=== PATIENT | female | born 1975 | race Caucasian/White ===

== ENCOUNTER 2021-08-28 12:20 | Emergency (ER) | payer MEDICAID ==
[~2021-08-28] VITALS: Ht 170.2 cm; Wt 112.4 kg
[~2021-08-28 12:20] MED LIST: BECL7.3A INH; BUPR300T53 PO; CLA10T PO; FLUT16SP2 BOTHNARES; HYDR-3973 PO; LORA-269 PO; LURA40TA3 PO; TOP25T PO; VENL150C2 PO; VENL75CA55 PO
[2021-08-28 12:30] VITALS: BP 119/80
[2021-08-28] MEDS ORDERED: azithromycin 250mg tablet PO ONE (12:35)
[2021-08-28] MEDS ORDERED: CefTRIAXone 1000mg IM Kit (w/lidocaine diluent) IM ONE (12:35)
[2021-08-28 13:32] LABS: URINE HCG NEGATIVE (NEG)
[2021-08-28 13:40] LABS: CLARITY,URINE CLOUDY (Clear); COLOR,URINE YELLOW (Yellow); GLUCOSE, URINE NEGATIVE (Neg); KETONES,URINE NEGATIVE (Neg); OCCULT BLOOD,URINE MODERATE (Neg); PROTEIN,URINE NEGATIVE (Neg); UA COLLECTION TYPE CLN CATCH MIDSTREAM
[2021-08-28 13:41] LABS: LEUKOCYTE ESTERASE ,URINE LARGE (Neg); NITRITES, URINE NEGATIVE (Neg); UROBILINOGEN,URINE 0.2 E.U/dL (0.2-1.0)
[2021-08-28 13:58] LABS: WBC,URINE 50-100 /HPF (0-4)
[2021-08-28 14:00] LABS: BACTERIA,URINE 3+ /HPF (Neg)
[2021-08-28 14:01] LABS: MUCUS STRANDS FEW /LPF (Neg); SQUAMOUS EPITHELIAL CELL,UR MODERATE /LPF (FEW); TRANSITIONAL EPI CELLS,URINE FEW /HPF; TRICHOMONAS,URINE FEW /HPF (NEGATIVE); WBC CLUMPS,URINE MODERATE /HPF (NEGATIVE)
[2021-08-28] MEDS ORDERED: FLUC150T66 PO (14:14)
== END 2021-08-28 14:42 | disposition home or self-care (01) ==
LOC: ER 12:21
DX: N89.8 Other specified noninflammatory disorders of vagina (principal); A64 Unspecified sexually transmitted disease; R10.2 Pelvic and perineal pain; L29.9 Pruritus, unspecified; R30.0 Dysuria; I10 Essential (primary) hypertension; F41.9 Anxiety disorder, unspecified; F31.9 Bipolar disorder, unspecified; F12.90 Cannabis use, unspecified, uncomplicated; Z98.890 Other specified postprocedural states; Z88.5 Allergy status to narcotic agent; Z88.8 Allergy status to other drugs, medicaments and biological substances; Z79.899 Other long term (current) drug therapy
CPT/HCPCS: 36415; 81001; 81025; 87088; 87491; 87591; 96372; 99283; J0696

== ENCOUNTER 2021-08-31 17:24 | Emergency (ER) | payer MEDICAID ==
[~2021-08-31] VITALS: Ht 170.2 cm; Wt 115.0 kg
[~2021-08-31 17:24] MED LIST changes: +FLUC150T66 PO
[2021-08-31] MEDS ORDERED: MICO45CR46 VG (19:40)
[2021-08-31 20:28] VITALS: BP 114/68
== END 2021-08-31 20:30 | disposition home or self-care (01) ==
LOC: ER 17:25
DX: K43.9 Ventral hernia without obstruction or gangrene (principal); B37.3 Candidiasis of vulva and vagina; I10 Essential (primary) hypertension; F41.9 Anxiety disorder, unspecified; F31.9 Bipolar disorder, unspecified; F12.90 Cannabis use, unspecified, uncomplicated; Z98.890 Other specified postprocedural states; Z88.5 Allergy status to narcotic agent; Z79.2 Long term (current) use of antibiotics; Z79.899 Other long term (current) drug therapy
CPT/HCPCS: 99283

== ENCOUNTER 2021-10-18 17:06 | Emergency (ER) | payer MEDICAID ==
[~2021-10-18] VITALS: Ht 167.6 cm; Wt 110.9 kg
[~2021-10-18 17:06] MED LIST changes: -FLUC150T66 PO
--- NOTE | 2021-10-18 17:50 | NUR ---
GRACE CALLED FOR REPORT NUMBER. POLICE REPORT WAS NOT DONE TODAY. REPORT FILED BY THIS NURSE. INCIDENT # IS: [id number]
--- NOTE | 2021-10-18 19:24 | NUR ---
pt roomed in bed 1. assumed care of pt. pt reports that there is already a case filed with the police department.
[2021-10-18] MEDS ORDERED: ketorolac tromethamine 15mg/ml inj. IM ONE (21:35)
[2021-10-18] MEDS ORDERED: CefTRIAXone 1000mg IM Kit (w/lidocaine diluent) IM ONE (21:35)
[2021-10-18] MEDS ORDERED: metroNIDAZOLE 500mg tablet PO ONE (22:15)
[2021-10-18] MEDS ORDERED: DOXYCYCLINE 100MG CAPSULE PO ONE (22:15)
[2021-10-18] MEDS ORDERED: ketorolac trometh. 30mg/ml inj. IM ONE (22:25)
[2021-10-18] MEDS ORDERED: METR250T37 PO (22:30)
[2021-10-18] MEDS ORDERED: DOXY150T5 PO (22:30)
[2021-10-18] MEDS ORDERED: FLUC150T PO (22:53)
[2021-10-18 22:59] VITALS: BP 159/97
[2021-10-18 23:16] LABS: CLARITY,URINE CLOUDY (Clear); GLUCOSE, URINE NEGATIVE (Neg); KETONES,URINE NEGATIVE (Neg); LEUKOCYTE ESTERASE ,URINE LARGE (Neg); NITRITES, URINE NEGATIVE (Neg); OCCULT BLOOD,URINE TRACE-INTACT (Neg); PH,URINE 6.5 (4.8-8.0); PROTEIN,URINE NEGATIVE (Neg); UROBILINOGEN,URINE 0.2 E.U/dL (0.2-1.0)
[2021-10-18 23:21] LABS: COLOR,URINE STRAW (Yellow); UA COLLECTION TYPE CLN CATCH MIDSTREAM
[2021-10-18 23:24] LABS: SQUAMOUS EPITHELIAL CELL,UR FEW /LPF (FEW); WBC CLUMPS,URINE FEW /HPF (NEGATIVE)
[2021-10-18 23:27] LABS: BACTERIA,URINE 1+ /HPF (Neg); RBC,URINE 0-2 /HPF (0-2); WBC,URINE 30-50 /HPF (0-4)
== END 2021-10-18 23:02 | disposition home or self-care (01) ==
LOC: EEVIPCON 17:07 → ER 17:07
DX: S70.02XA Contusion of left hip, initial encounter (principal); A64 Unspecified sexually transmitted disease; R10.2 Pelvic and perineal pain; M25.552 Pain in left hip; I10 Essential (primary) hypertension; F41.9 Anxiety disorder, unspecified; F31.9 Bipolar disorder, unspecified; F12.90 Cannabis use, unspecified, uncomplicated; Z98.890 Other specified postprocedural states; Z88.5 Allergy status to narcotic agent; Z88.8 Allergy status to other drugs, medicaments and biological substances; Z79.2 Long term (current) use of antibiotics; Z79.899 Other long term (current) drug therapy; Y08.89XA Assault by other specified means, initial encounter; Y93.89 Activity, other specified; Y92.89 Other specified places as the place of occurrence of the external cause; Y99.8 Other external cause status
CPT/HCPCS: 36415; 73502; 81001; 87088; 87491; 87591; 96372; 99284; J0696

== ENCOUNTER 2021-10-29 11:51 | Emergency (ER) | payer MEDICAID ==
[~2021-10-29] VITALS: Ht 167.6 cm; Wt 109.1 kg
[~2021-10-29 11:51] MED LIST changes: +DOXY150T5 PO
[2021-10-29 14:05] LABS: BASOPHILS % (AUTO) 0.4 % (0-1); EOSINOPHILS # (AUTO) 0.2 X10'3 (0-0.9); EOSINOPHILS % (AUTO) 1.5 % (0-6); HEMATOCRIT 34.7 % (35.0-45.0); HEMOGLOBIN 11.5 g/dl (12.0-16.0); LYMPHOCYTES # (AUTO) 2.1 X10'3 (1.1-4.8); LYMPHOCYTES % (AUTO) 19.7 % (21-51); MEAN CORPUSCULAR HEMOGLOBIN 27.5 PG (27.0-31.0); MEAN CORPUSCULAR HGB CONC 33.3 g/dL (33.0-36.5); MEAN CORPUSCULAR VOLUME 82.8 FL (78-98); MEAN PLATELET VOLUME 8.6 FL (7.4-10.4); MONOCYTES # (AUTO) 0.8 X10'3 (0-0.9); MONOCYTES % (AUTO) 7.3 % (2-12); NEUTROPHILS # (AUTO) 7.6 X10'3 (1.8-7.7); NEUTROPHILS % (AUTO) 71.1 % (42-75); PLATELET COUNT 444 X10'3 (140-440); RED BLOOD COUNT 4.19 X10'6 (4.20-5.60); WHITE BLOOD COUNT 10.7 X10'3 (4.5-11.0)
[2021-10-29 14:32] LABS: ANISOCYTOSIS 2+; PLATELET ESTIMATE INCREASED
[2021-10-29 14:36] LABS: ALANINE AMINOTRANSFERASE 20 U/L (12-78); ALBUMIN 3.7 G/DL (3.4-5.0); ALBUMIN/GLOBULIN RATIO 0.8 (1.1-1.5); ALKALINE PHOSPHATASE 96 IU/L (46-116); ANION GAP 10 (8-16); ASPARTATE AMINO TRANSFERASE 15 U/L (10-37); BILIRUBIN,TOTAL 0.4 MG/DL (0.1-1.0); BLOOD UREA NITROGEN 17 MG/DL (7-18); BUN/CREATININE RATIO 20.5 (6.6-38.0); CALCIUM 9.7 MG/DL (8.5-10.1); CHLORIDE 105 MMOL/L (99-107); CREATININE 0.83 MG/DL (0.40-0.90); GLUCOSE 104 MG/DL (70-104); POTASSIUM 3.5 MMOL/L (3.5-5.1); SODIUM 140 MMOL/L (135-145); TOTAL PROTEIN 8.1 G/DL (6.4-8.2); eGFR 73 ML/MIN
[2021-10-29 17:07] LABS: CLARITY,URINE SLIGHTLY CLOUDY (Clear); COLOR,URINE YELLOW (Yellow); GLUCOSE, URINE NEGATIVE (Neg); KETONES,URINE TRACE mg/dl (Neg); LEUKOCYTE ESTERASE ,URINE NEGATIVE (Neg); NITRITES, URINE NEGATIVE (Neg); OCCULT BLOOD,URINE NEGATIVE (Neg); PH,URINE 5.5 (4.8-8.0); PROTEIN,URINE NEGATIVE (Neg); UROBILINOGEN,URINE 0.2 E.U/dL (0.2-1.0)
[2021-10-29 17:08] LABS: UA COLLECTION TYPE CLN CATCH MIDSTREAM
[2021-10-29 17:17] LABS: SQUAMOUS EPITHELIAL CELL,UR MANY /LPF (FEW)
[2021-10-29 17:18] LABS: BACTERIA,URINE NONE SEEN /HPF (Neg); CAL OXALATE CRYSTALS 4+ /HPF (NEGATIVE); RBC,URINE 0-2 /HPF (0-2); WBC,URINE 0-4 /HPF (0-4)
[2021-10-29 18:36] VITALS: BP 183/99
== END 2021-10-29 18:39 | disposition home or self-care (01) ==
LOC: ER 11:51
DX: R10.30 Lower abdominal pain, unspecified (principal); R19.7 Diarrhea, unspecified; F31.9 Bipolar disorder, unspecified; I10 Essential (primary) hypertension; Z88.5 Allergy status to narcotic agent; Z88.8 Allergy status to other drugs, medicaments and biological substances
CPT/HCPCS: 36415; 80053; 81001; 85008; 85025; 99283

== ENCOUNTER 2021-11-01 10:11 | Emergency (ER) | payer MEDICAID ==
[~2021-11-01] VITALS: Ht 170.2 cm; Wt 105.0 kg
[~2021-11-01 10:11] MED LIST changes: -DOXY150T5 PO
[2021-11-01 11:07] LABS: BASOPHILS % (AUTO) 0.2 % (0-1); EOSINOPHILS % (AUTO) 0 % (0-6); HEMATOCRIT 32.6 % (35.0-45.0); HEMOGLOBIN 10.6 g/dl (12.0-16.0); LYMPHOCYTES # (AUTO) 1.4 X10'3 (1.1-4.8); LYMPHOCYTES % (AUTO) 9.8 % (21-51); MEAN CORPUSCULAR HEMOGLOBIN 27.3 PG (27.0-31.0); MEAN CORPUSCULAR HGB CONC 32.6 g/dL (33.0-36.5); MEAN CORPUSCULAR VOLUME 83.7 FL (78-98); MEAN PLATELET VOLUME 8.5 FL (7.4-10.4); MONOCYTES # (AUTO) 0.9 X10'3 (0-0.9); MONOCYTES % (AUTO) 6.5 % (2-12); NEUTROPHILS # (AUTO) 11.8 X10'3 (1.8-7.7); NEUTROPHILS % (AUTO) 83.5 % (42-75); PLATELET COUNT 364 X10'3 (140-440); RED BLOOD COUNT 3.89 X10'6 (4.20-5.60); RED CELL DISTRIBUTION WIDTH 18.9 % (11.5-14.5); WHITE BLOOD COUNT 14.2 X10'3 (4.5-11.0)
[2021-11-01 11:22] LABS: ANISOCYTOSIS 2+; PLATELET ESTIMATE NORMAL
[2021-11-01 11:23] LABS: ELLIPTOCYTES FEW; LARGE PLATELETS FEW; TEAR DROP CELLS FEW
[2021-11-01 11:27] LABS: ALANINE AMINOTRANSFERASE 22 U/L (12-78); ALBUMIN 3.2 G/DL (3.4-5.0); ALBUMIN/GLOBULIN RATIO 0.8 (1.1-1.5); ALKALINE PHOSPHATASE 86 IU/L (46-116); ANION GAP 13 (8-16); ASPARTATE AMINO TRANSFERASE 22 U/L (10-37); BILIRUBIN,TOTAL 0.4 MG/DL (0.1-1.0); BLOOD UREA NITROGEN 17 MG/DL (7-18); BUN/CREATININE RATIO 22.7 (6.6-38.0); CALCIUM 8.8 MG/DL (8.5-10.1); CHLORIDE 107 MMOL/L (99-107); CREATININE 0.75 MG/DL (0.40-0.90); GLUCOSE 86 MG/DL (70-104); SODIUM 143 MMOL/L (135-145); TOTAL CARBON DIOXIDE 23.2 MMOL/L (24-32); TOTAL PROTEIN 7.1 G/DL (6.4-8.2); eGFR 82 ML/MIN
[2021-11-01] MEDS ORDERED: HYDR-3964 PO (11:35)
[2021-11-01] MEDS ORDERED: ONDA4TAB6 PO ×2 (11:35)
[2021-11-01 11:48] LABS: CKMB RELATIVE INDEX 4.1 RATIO (0-2.5); CREATINE KINASE 200 U/L (26-192); ETHANOL < 0.010 GM/DL (0.0-0.010)
[2021-11-01 13:43] VITALS: BP 164/62
[2021-11-02] MEDS ORDERED: ESZO3TAB66 PO (18:56)
[2021-11-02] MEDS ORDERED: CLON1TAB12 PO (18:56)
[2021-11-02] MEDS ORDERED: PRAZ1CAP5 PO (18:57)
[2021-11-02] MEDS ORDERED: PROP80TA4 PO (18:57)
[2021-11-02] MEDS ORDERED: CITA-109 PO (18:58)
[2021-11-02] MEDS ORDERED: TOPI25TA15 PO (18:58)
[2021-11-02] MEDS ORDERED: QUET25TA PO (18:59)
[2021-11-02] MEDS ORDERED: DULO60CA65 PO (18:59)
[2021-11-02] MEDS ORDERED: LORA-269 PO (19:00)
== END 2021-11-01 13:53 | disposition home or self-care (01) ==
LOC: ER 10:12
DX: S80.12XA Contusion of left lower leg, initial encounter (principal); S80.11XA Contusion of right lower leg, initial encounter; T68.XXXA Hypothermia, initial encounter; I10 Essential (primary) hypertension; F41.9 Anxiety disorder, unspecified; F31.9 Bipolar disorder, unspecified; F12.90 Cannabis use, unspecified, uncomplicated; Z98.890 Other specified postprocedural states; Z88.5 Allergy status to narcotic agent; Z88.8 Allergy status to other drugs, medicaments and biological substances; Z79.899 Other long term (current) drug therapy; W19.XXXA Unspecified fall, initial encounter; Y93.89 Activity, other specified; Y92.89 Other specified places as the place of occurrence of the external cause; Y99.8 Other external cause status
CPT/HCPCS: 36415; 80053; 80320; 82550; 82553; 84443; 85008; 85025; 99283

== ENCOUNTER 2021-11-02 00:31 | Emergency (ER) | payer MEDICAID ==
[~2021-11-02 00:31] MED LIST changes: +ONDA4TAB6 PO
[2021-11-02] MEDS ORDERED: CLON1TAB12 PO (18:56)
[2021-11-02] MEDS ORDERED: ESZO3TAB66 PO (18:56)
[2021-11-02] MEDS ORDERED: PROP80TA4 PO (18:57)
[2021-11-02] MEDS ORDERED: PRAZ1CAP5 PO (18:57)
[2021-11-02] MEDS ORDERED: TOPI25TA15 PO (18:58)
[2021-11-02] MEDS ORDERED: CITA-109 PO (18:58)
[2021-11-02] MEDS ORDERED: DULO60CA65 PO (18:59)
[2021-11-02] MEDS ORDERED: QUET25TA PO (18:59)
[2021-11-02] MEDS ORDERED: LORA-269 PO (19:00)
== END 2021-11-02 04:27 | disposition left against medical advice (07) ==
LOC: ER 00:32
DX: R52 Pain, unspecified (principal); Z53.21 Procedure and treatment not carried out due to patient leaving prior to being seen by health care provider

== ENCOUNTER 2021-11-23 18:09 | Inpatient (IN) | payer MEDICAID ==
[~2021-11-23] VITALS: Ht 167.6 cm; Wt 107.0 kg
[~2021-11-23 18:09] MED LIST changes: -BECL7.3A INH; +BISA10SU11 RC; -BUPR300T53 PO; +CELE100C98 PO; +CHOL100046 PO; -CLA10T PO; +CLON0.5T4 PO; +CLON1TAB12 PO; +CLON1TAB96 PO; +DOCU100C40 PO; +DULO30CA52 PO; +DULO60CA65 PO; +FER325T PO; +FLUT16SP NS; -FLUT16SP2 BOTHNARES; -HYDR-3973 PO; +HYDROchlorothiazide tablet PO; +LISI10TA27 PO; -LORA-269 PO; +LORA10TA65 PO; -LURA40TA3 PO; +OLAN7.5T18 PO; +ONDA4TAB12 PO; -ONDA4TAB6 PO; +POLY15DR31 EACHEYE; +PROP60TA19 PO; +ROBDML PO; +TERB250T89 PO; -TOP25T PO; +TRAZ-251 PO; -VENL150C2 PO; -VENL75CA55 PO
[2021-11-23 20:40] VITALS: BP 114/66
[2021-11-23] MEDS ORDERED: temazepam 15mg capsule PO PRN (21:00)
--- NOTE | 2021-11-23 21:31 | NUR ---
Notified that patient arrived from [facility] unit and that patient needs admitting orders done. accepted patient for the hospitalist group per my conversation with nursing room service supervisor, Tavia earlier in the shift.
[2021-11-23] MEDS ORDERED: acetaminophen 325mg tablet PO PRN ×3 (22:00→22:10)
[2021-11-23] MEDS ORDERED: acetaminophen 650mg rectal suppository RC PRN (22:10)
[2021-11-23] MEDS ORDERED: HYDROcodone/acetaminophen 5mg/325mg tablet PO PRN (22:10)
[2021-11-23] MEDS ORDERED: diphenhydrAMINE 50 mg/ml inj IV PRN (22:10)
[2021-11-23] MEDS ORDERED: magnesium hydroxide 30ml (MOM) UD suspension PO PRN (22:10)
[2021-11-23] MEDS ORDERED: diphenhydrAMINE 25mg capsule PO PRN (22:10)
[2021-11-23] MEDS ORDERED: ondansetron 4mg rapidly disintigrating tab PO PRN (22:10)
[2021-11-23] MEDS ORDERED: bisacodyl 10mg suppository rectal RC PRN (22:10)
[2021-11-23] MEDS ORDERED: HYDROcodone/acetaminophen 10/325mg tab PO PRN (22:10)
[2021-11-23] MEDS ORDERED: mag hydrox/Alum hydrox/simeth 30ml oral suspension PO PRN (22:10)
[2021-11-23] MEDS ORDERED: ondansetron/PF 4mg/2ml inj IV PRN (22:10)
[2021-11-23] MEDS ORDERED: ALBUTEROL INHALER 1 PUFF/90 MCG INHALER IH PRN (22:15)
[2021-11-23] MEDS: normal saline 1000ml 1,000 ML IV SCH (23:20)
[2021-11-24 00:14] LABS: ALANINE AMINOTRANSFERASE 27 U/L (12-78); ALBUMIN 2.9 G/DL (3.4-5.0); ALBUMIN/GLOBULIN RATIO 0.7 (1.1-1.5); ALKALINE PHOSPHATASE 104 IU/L (46-116); ANION GAP 5 (8-16); ASPARTATE AMINO TRANSFERASE 24 U/L (10-37); BILIRUBIN,TOTAL 0.2 MG/DL (0.1-1.0); BLOOD UREA NITROGEN 15 MG/DL (7-18); BUN/CREATININE RATIO 16.1 (6.6-38.0); CALCIUM 9.2 MG/DL (8.5-10.1); CHLORIDE 102 MMOL/L (99-107); CREATININE 0.93 MG/DL (0.40-0.90); GLUCOSE 98 MG/DL (70-104); POTASSIUM 3.8 MMOL/L (3.5-5.1); SODIUM 136 MMOL/L (135-145); TOTAL CARBON DIOXIDE 28.7 MMOL/L (24-32); TOTAL PROTEIN 7.1 G/DL (6.4-8.2); eGFR 64 ML/MIN
[2021-11-24 00:22] LABS: C-REACTIVE PROTEIN 2.02 MG/DL (0.0-0.5); CREATINE KINASE 21 U/L (26-192); LIPASE 171 U/L (73-393); PHOSPHORUS 3.8 MG/DL (2.3-4.5)
[2021-11-24 02:00] VITALS: BP 100/61
--- NOTE | 2021-11-24 06:25 | NUR ---
Problems reprioritized. Patient report given, questions answered & plan of care reviewed with NUNO WELCH.
[2021-11-24 06:40] VITALS: BP 117/69
--- NOTE | 2021-11-24 06:50 | NUR ---
Patient in room ORTHO 4017. I have received report from Alice WELCH and had the opportunity to ask questions and assume patient care.
--- NOTE | 2021-11-24 07:02 | NUR ---
PAGER ID: [phone] MESSAGE: [phone] Brett, patient came from mental health and needs her med rec addressed please she is on several psychiatric medications that she needs. thank you jordy [phone]
[2021-11-24] MEDS ORDERED: ondansetron 4mg rapidly disintigrating tab PO PRN (07:25)
[2021-11-24] MEDS ORDERED: guaiFENesin/DM 10ml UD oral syrup PO PRN (07:25)
[2021-11-24] MEDS ORDERED: bisacodyl 10mg suppository rectal RC PRN (07:25)
[2021-11-24] MEDS ORDERED: polyvinyl alcohol ophthalmic drops 15ml bottle EACHEYE PRN (07:25)
--- NOTE | 2021-11-24 07:32 | NUR ---
Per MD Josh reid to continue home medications
[2021-11-24] MEDS ORDERED: OLANZapine 2.5MG tablet PO SCH (08:00)
[2021-11-24] MEDS ORDERED: CefTRIAXone/D5W-Rocephin 1gm 50 ML IV SCH (08:00)
[2021-11-24] MEDS ORDERED: azithromycin/NS 500mg/250ml 250 ML IV SCH (08:00)
[2021-11-24] MEDS: docusate sod 100mg capsule PO SCH ×3 (08:00→19:34)
[2021-11-24] MEDS: normal saline 1000ml 1,000 ML IV SCH (08:10)
[2021-11-24 08:31] LABS: BASOPHILS % (AUTO) 0.4 % (0-1); EOSINOPHILS % (AUTO) 0.1 % (0-6); HEMATOCRIT 29.8 % (35.0-45.0); HEMOGLOBIN 9.8 g/dl (12.0-16.0); LYMPHOCYTES # (AUTO) 1.5 X10'3 (1.1-4.8); LYMPHOCYTES % (AUTO) 20.3 % (21-51); MEAN CORPUSCULAR HEMOGLOBIN 28.4 PG (27.0-31.0); MEAN CORPUSCULAR VOLUME 85.9 FL (78-98); MEAN PLATELET VOLUME 8.2 FL (7.4-10.4); MONOCYTES # (AUTO) 0.8 X10'3 (0-0.9); MONOCYTES % (AUTO) 10.5 % (2-12); NEUTROPHILS # (AUTO) 5.1 X10'3 (1.8-7.7); NEUTROPHILS % (AUTO) 68.7 % (42-75); PLATELET COUNT 388 X10'3 (140-440); RED BLOOD COUNT 3.47 X10'6 (4.20-5.60); RED CELL DISTRIBUTION WIDTH 19.1 % (11.5-14.5); WHITE BLOOD COUNT 7.4 X10'3 (4.5-11.0)
[2021-11-24] MEDS: loratadine 10mg tablet PO SCH (08:48)
[2021-11-24] MEDS: cholecalciferol (vitamin D3) 1,000 unit (25mcg) tablet PO SCH (08:48)
[2021-11-24] MEDS: duloxetine 30mg CAPSULE.DR PO SCH ×2 (08:49→12:27)
[2021-11-24] MEDS: lisinopril 10 MG tablet PO SCH (08:49)
[2021-11-24] MEDS: pantoprazole 40mg Tablet.DR PO SCH (08:49)
[2021-11-24] MEDS: clonazePAM 1mg tablet PO SCH ×2 (08:49→19:35)
[2021-11-24] MEDS: celeCOXIB 100mg capsule PO SCH (08:49)
[2021-11-24 08:50] LABS: ALANINE AMINOTRANSFERASE 24 U/L (12-78); ALBUMIN 2.8 G/DL (3.4-5.0); ALBUMIN/GLOBULIN RATIO 0.7 (1.1-1.5); ALKALINE PHOSPHATASE 97 IU/L (46-116); ANION GAP 9 (8-16); ASPARTATE AMINO TRANSFERASE 29 U/L (10-37); BILIRUBIN,TOTAL 0.1 MG/DL (0.1-1.0); BLOOD UREA NITROGEN 13 MG/DL (7-18); BUN/CREATININE RATIO 14.8 (6.6-38.0); CHLORIDE 104 MMOL/L (99-107); CHOL/HDL RATIO 5.9 (0.00-4.99); CHOLESTEROL 148 MG/DL (0-200); CREATININE 0.88 MG/DL (0.40-0.90); GLUCOSE 145 MG/DL (70-104); HDL CHOLESTEROL 25 MG/DL (35-60); LDL CHOLESTEROL 93 MG/DL (50-100); SODIUM 139 MMOL/L (135-145); TOTAL CARBON DIOXIDE 26.3 MMOL/L (24-32); TOTAL PROTEIN 6.9 G/DL (6.4-8.2); TRIGLYCERIDES 130 MG/DL (20-135); eGFR 69 ML/MIN
[2021-11-24] MEDS: dexamethasone 4mg/ml inj IV SCH ×2 (08:50→19:36)
[2021-11-24] MEDS: enoxaparin 40mg/0.4ml syringe SUBCUT SCH ×2 (08:50→19:36)
[2021-11-24 09:16] LABS: ANISOCYTOSIS 2+; PLATELET ESTIMATE NORMAL; STOMATOCYTES 1+
[2021-11-24] MEDS: fluticasone nasal spray 16GM bottle NS SCH (09:42)
[2021-11-24 10:55] VITALS: BP 117/70
--- NOTE | 2021-11-24 11:11 | NUR ---
Calorie count consult: Calorie count not indicated at this time as pt is notably eating well, documented with 75-100% PO intake on regular diet since transfer to COVID unit and eating well while in behavior health unit, documented with mostly 100% PO intake since admit 11/03. Will continue to follow. Addendum: 11/24/21 at [address] Amended: Links added.
--- NOTE | 2021-11-24 11:54 | NUR ---
Supplied patient with IS and flutter and instructed on use.
[2021-11-24] MEDS: clonazePAM 1mg tablet PO PRN (12:59)
[2021-11-24 18:00] VITALS: BP 111/75
--- NOTE | 2021-11-24 18:06 | NUR ---
Problems reprioritized. Patient report given, questions answered & plan of care reviewed with Alice WELCH.
--- NOTE | 2021-11-24 18:42 | NUR ---
Patient in room ORTHO 4017. I have received report from NUNO WELCH and had the opportunity to ask questions and assume patient care.
[2021-11-24] MEDS: lactobacillus rhamnosus 10,000 MMU CELLS/CAPSULE PO SCH (19:34)
[2021-11-24] MEDS: HYDROchlorothiazide 12.5mg capsule PO SCH (19:34)
[2021-11-24] MEDS: traZODone 50mg tablet PO SCH (19:35)
[2021-11-24] MEDS: OLANZapine 2.5MG tablet PO SCH (19:35)
[2021-11-24 22:00] VITALS: BP 99/64
[2021-11-25] MEDS: clonazePAM 1mg tablet PO PRN ×2 (03:19→12:30)
[2021-11-25 06:00] VITALS: BP 105/56
--- NOTE | 2021-11-25 06:10 | NUR ---
RECEIVED REPORT FROM REBEKAH YARBROUGH
--- NOTE | 2021-11-25 06:20 | NUR ---
Problems reprioritized. Patient report given, questions answered & plan of care reviewed with DA WELCH.
[2021-11-25] MEDS: loratadine 10mg tablet PO SCH (07:19)
[2021-11-25] MEDS: docusate sod 100mg capsule PO SCH ×3 (07:19→19:19)
[2021-11-25] MEDS: celeCOXIB 100mg capsule PO SCH (07:20)
[2021-11-25] MEDS: lactobacillus rhamnosus 10,000 MMU CELLS/CAPSULE PO SCH ×2 (07:20→19:09)
[2021-11-25] MEDS: duloxetine 30mg CAPSULE.DR PO SCH ×2 (07:21→12:29)
[2021-11-25] MEDS: cholecalciferol (vitamin D3) 1,000 unit (25mcg) tablet PO SCH (07:22)
[2021-11-25] MEDS: pantoprazole 40mg Tablet.DR PO SCH (07:23)
[2021-11-25] MEDS: clonazePAM 1mg tablet PO SCH ×2 (07:23→19:10)
[2021-11-25] MEDS: OLANZapine 2.5MG tablet PO SCH ×2 (07:24→19:09)
[2021-11-25] MEDS: lisinopril 10 MG tablet PO SCH (07:24)
[2021-11-25] MEDS: fluticasone nasal spray 16GM bottle NS SCH (07:25)
[2021-11-25] MEDS: dexamethasone 4mg/ml inj IV SCH ×2 (07:26→19:06)
[2021-11-25] MEDS: enoxaparin 40mg/0.4ml syringe SUBCUT SCH ×2 (07:31→19:09)
[2021-11-25 07:54] LABS: APTT 35 SECONDS (22-32); D-DIMER 0.59 MG/L FEU (0-0.50)
[2021-11-25 07:55] LABS: BASOPHILS % (AUTO) 0.1 % (0-1); EOSINOPHILS % (AUTO) 0 % (0-6); HEMATOCRIT 33.3 % (35.0-45.0); HEMOGLOBIN 11.2 g/dl (12.0-16.0); LYMPHOCYTES # (AUTO) 1.8 X10'3 (1.1-4.8); LYMPHOCYTES % (AUTO) 29.9 % (21-51); MEAN CORPUSCULAR HEMOGLOBIN 28.7 PG (27.0-31.0); MEAN CORPUSCULAR HGB CONC 33.7 g/dL (33.0-36.5); MEAN CORPUSCULAR VOLUME 85.1 FL (78-98); MEAN PLATELET VOLUME 8.2 FL (7.4-10.4); MONOCYTES # (AUTO) 0.7 X10'3 (0-0.9); MONOCYTES % (AUTO) 11.6 % (2-12); NEUTROPHILS # (AUTO) 3.4 X10'3 (1.8-7.7); NEUTROPHILS % (AUTO) 58.4 % (42-75); PLATELET COUNT 476 X10'3 (140-440); RED BLOOD COUNT 3.91 X10'6 (4.20-5.60); WHITE BLOOD COUNT 5.9 X10'3 (4.5-11.0)
[2021-11-25 08:04] LABS: ALANINE AMINOTRANSFERASE 26 U/L (12-78); ALBUMIN 3.3 G/DL (3.4-5.0); ALBUMIN/GLOBULIN RATIO 0.6 (1.1-1.5); ALKALINE PHOSPHATASE 110 IU/L (46-116); ANION GAP 11 (8-16); ASPARTATE AMINO TRANSFERASE 26 U/L (10-37); BILIRUBIN,TOTAL 0.2 MG/DL (0.1-1.0); BLOOD UREA NITROGEN 19 MG/DL (7-18); BUN/CREATININE RATIO 26.4 (6.6-38.0); CALCIUM 9.9 MG/DL (8.5-10.1); CHLORIDE 103 MMOL/L (99-107); CREATININE 0.72 MG/DL (0.40-0.90); GLUCOSE 100 MG/DL (70-104); POTASSIUM 3.4 MMOL/L (3.5-5.1); SODIUM 142 MMOL/L (135-145); TOTAL CARBON DIOXIDE 28.1 MMOL/L (24-32); TOTAL PROTEIN 8.4 G/DL (6.4-8.2); eGFR 86 ML/MIN
[2021-11-25] MEDS ORDERED: potassium Cl 40MEQ/1/2NS 520ml 520 ML IV PRN ×2 (08:25)
[2021-11-25] MEDS ORDERED: potassium Cl 20 mEq SR tablet PO PRN (08:25)
[2021-11-25] MEDS: potassium Cl 20 mEq SR tablet PO PRN ×3 (08:33→15:57)
[2021-11-25 10:00] VITALS: BP 124/85
[2021-11-25 14:00] VITALS: BP 149/83
[2021-11-25 18:00] VITALS: BP 126/81
--- NOTE | 2021-11-25 18:09 | NUR ---
GAVE REPORT TO REBEKAH BRAUN
[2021-11-25] MEDS: HYDROchlorothiazide 12.5mg capsule PO SCH (19:10)
[2021-11-25] MEDS: traZODone 50mg tablet PO SCH (19:10)
[2021-11-25 22:05] VITALS: BP 121/47
[2021-11-26] MEDS: clonazePAM 1mg tablet PO PRN ×2 (03:03→12:43)
[2021-11-26 06:10] VITALS: BP 138/92
--- NOTE | 2021-11-26 06:29 | NUR ---
Problems reprioritized. Patient report given, questions answered & plan of care reviewed with REBEKAH ANTONIO.
--- NOTE | 2021-11-26 06:30 | NUR ---
Patient in room ORTHO 4017. I have received report from Millie WELCH and had the opportunity to ask questions and assume patient care.
[2021-11-26] MEDS: OLANZapine 2.5MG tablet PO SCH (07:09)
[2021-11-26] MEDS: lactobacillus rhamnosus 10,000 MMU CELLS/CAPSULE PO SCH (07:09)
[2021-11-26] MEDS: enoxaparin 40mg/0.4ml syringe SUBCUT SCH (07:09)
[2021-11-26] MEDS: cholecalciferol (vitamin D3) 1,000 unit (25mcg) tablet PO SCH (07:09)
[2021-11-26] MEDS: pantoprazole 40mg Tablet.DR PO SCH (07:09)
[2021-11-26] MEDS: duloxetine 30mg CAPSULE.DR PO SCH ×2 (07:10→12:39)
[2021-11-26] MEDS: celeCOXIB 100mg capsule PO SCH (07:10)
[2021-11-26] MEDS: fluticasone nasal spray 16GM bottle NS SCH (07:10)
[2021-11-26] MEDS: loratadine 10mg tablet PO SCH (07:10)
[2021-11-26] MEDS: clonazePAM 1mg tablet PO SCH (07:10)
[2021-11-26] MEDS: lisinopril 10 MG tablet PO SCH (07:11)
[2021-11-26] MEDS: dexamethasone 4mg/ml inj IV SCH (07:12)
[2021-11-26] MEDS: docusate sod 100mg capsule PO SCH ×2 (08:00)
[2021-11-26 08:30] LABS: BASOPHILS % (AUTO) 0.1 % (0-1); EOSINOPHILS % (AUTO) 0 % (0-6); HEMATOCRIT 33.4 % (35.0-45.0); LYMPHOCYTES # (AUTO) 1.6 X10'3 (1.1-4.8); LYMPHOCYTES % (AUTO) 27.2 % (21-51); MEAN CORPUSCULAR HEMOGLOBIN 28.4 PG (27.0-31.0); MEAN CORPUSCULAR HGB CONC 33.1 g/dL (33.0-36.5); MEAN CORPUSCULAR VOLUME 85.7 FL (78-98); MEAN PLATELET VOLUME 8.9 FL (7.4-10.4); MONOCYTES # (AUTO) 0.5 X10'3 (0-0.9); MONOCYTES % (AUTO) 8.5 % (2-12); NEUTROPHILS # (AUTO) 3.7 X10'3 (1.8-7.7); NEUTROPHILS % (AUTO) 64.2 % (42-75); PLATELET COUNT 462 X10'3 (140-440); RED BLOOD COUNT 3.89 X10'6 (4.20-5.60); RED CELL DISTRIBUTION WIDTH 18.5 % (11.5-14.5); WHITE BLOOD COUNT 5.8 X10'3 (4.5-11.0)
[2021-11-26 08:55] LABS: ALANINE AMINOTRANSFERASE 33 U/L (12-78); ALBUMIN 3.2 G/DL (3.4-5.0); ALBUMIN/GLOBULIN RATIO 0.7 (1.1-1.5); ALKALINE PHOSPHATASE 99 IU/L (46-116); ANION GAP 11 (8-16); ASPARTATE AMINO TRANSFERASE 30 U/L (10-37); BILIRUBIN,TOTAL 0.2 MG/DL (0.1-1.0); BLOOD UREA NITROGEN 21 MG/DL (7-18); BUN/CREATININE RATIO 28.4 (6.6-38.0); CALCIUM 9.8 MG/DL (8.5-10.1); CHLORIDE 102 MMOL/L (99-107); CREATININE 0.74 MG/DL (0.40-0.90); GLUCOSE 89 MG/DL (70-104); POTASSIUM 4.1 MMOL/L (3.5-5.1); SODIUM 138 MMOL/L (135-145); TOTAL PROTEIN 7.8 G/DL (6.4-8.2); eGFR 84 ML/MIN
[2021-11-26 10:00] VITALS: BP 131/95
--- NOTE | 2021-11-26 14:45 | NUR ---
Patient discharged at this time. She had all of her new prescription medications delivered to social services specialist Zeina Pacheco retrieved from [facility] new medications and delivered to patient at discharge. Patient picked up via taxi to go to [facility] room 214. Patient given phone numbers for peer support person Lorene.
[2021-11-27] MEDS ORDERED: MECL-159 PO (15:20)
== END 2021-11-26 14:45 | disposition home or self-care (01) | DRG 137 ==
LOC: UNDOADMIN 20:40 → ORTHO 4S 20:40
PROVIDERS: ADMIT Internal Medicine; ATTEND Internal Medicine
DX: U07.1 COVID-19 (principal); I11.0 Hypertensive heart disease with heart failure; I50.32 Chronic diastolic (congestive) heart failure; J44.1 Chronic obstructive pulmonary disease with (acute) exacerbation; F31.9 Bipolar disorder, unspecified; G89.4 Chronic pain syndrome; F12.10 Cannabis abuse, uncomplicated; E66.01 Morbid (severe) obesity due to excess calories; Z83.42 Family history of familial hypercholesterolemia; Z82.5 Family history of asthma and other chronic lower respiratory diseases; Z68.38 Body mass index [BMI] 38.0-38.9, adult; Z88.5 Allergy status to narcotic agent; Z88.6 Allergy status to analgesic agent; Z79.899 Other long term (current) drug therapy
CPT/HCPCS: 36415; 71045; 80053; 80061; 82550; 83605; 83690; 83735; 83880; 84100; 85008; 85025; 85379; 85610; 85651; 85730; 86140; 87040; 87081; 94760; G0378; J0456; J0696; J1100; J1650; J7030

== ENCOUNTER 2021-11-27 11:16 | Emergency (ER) | payer MEDICAID ==
[~2021-11-27] VITALS: Ht 167.6 cm; Wt 104.5 kg
[~2021-11-27 11:16] MED LIST changes: -CLON0.5T4 PO; -FER325T PO; -PROP60TA19 PO; -TERB250T89 PO
[2021-11-27 11:22] VITALS: BP 136/88
[2021-11-27 12:06] LABS: BASOPHILS % (AUTO) 0.2 % (0-1); EOSINOPHILS % (AUTO) 0.2 % (0-6); HEMATOCRIT 33.5 % (35.0-45.0); HEMOGLOBIN 11.1 g/dl (12.0-16.0); LYMPHOCYTES # (AUTO) 2.5 X10'3 (1.1-4.8); LYMPHOCYTES % (AUTO) 35.5 % (21-51); MEAN CORPUSCULAR HEMOGLOBIN 28.1 PG (27.0-31.0); MEAN CORPUSCULAR HGB CONC 33.1 g/dL (33.0-36.5); MEAN CORPUSCULAR VOLUME 84.7 FL (78-98); MEAN PLATELET VOLUME 8.1 FL (7.4-10.4); MONOCYTES # (AUTO) 0.8 X10'3 (0-0.9); MONOCYTES % (AUTO) 11.3 % (2-12); NEUTROPHILS # (AUTO) 3.8 X10'3 (1.8-7.7); NEUTROPHILS % (AUTO) 52.8 % (42-75); PLATELET COUNT 489 X10'3 (140-440); RED BLOOD COUNT 3.95 X10'6 (4.20-5.60); RED CELL DISTRIBUTION WIDTH 18.5 % (11.5-14.5); WHITE BLOOD COUNT 7.1 X10'3 (4.5-11.0)
[2021-11-27 12:20] LABS: ALANINE AMINOTRANSFERASE 108 U/L (12-78); ALBUMIN 3.4 G/DL (3.4-5.0); ALBUMIN/GLOBULIN RATIO 0.8 (1.1-1.5); ALKALINE PHOSPHATASE 109 IU/L (46-116); ANION GAP 9 (8-16); ASPARTATE AMINO TRANSFERASE 103 U/L (10-37); BILIRUBIN,TOTAL 0.2 MG/DL (0.1-1.0); BLOOD UREA NITROGEN 24 MG/DL (7-18); BUN/CREATININE RATIO 30.8 (6.6-38.0); CALCIUM 9.3 MG/DL (8.5-10.1); CHLORIDE 103 MMOL/L (99-107); CREATININE 0.78 MG/DL (0.40-0.90); GLUCOSE 82 MG/DL (70-104); SODIUM 140 MMOL/L (135-145); TOTAL CARBON DIOXIDE 28.1 MMOL/L (24-32); TOTAL PROTEIN 7.7 G/DL (6.4-8.2); eGFR 79 ML/MIN
[2021-11-27] MEDS ORDERED: MECL-159 PO (15:20)
== END 2021-11-27 15:32 | disposition home or self-care (01) ==
LOC: ER 11:17
DX: R42 Dizziness and giddiness (principal); I10 Essential (primary) hypertension; F12.90 Cannabis use, unspecified, uncomplicated; Z88.5 Allergy status to narcotic agent; Z88.8 Allergy status to other drugs, medicaments and biological substances; Z79.899 Other long term (current) drug therapy; Z79.2 Long term (current) use of antibiotics
CPT/HCPCS: 36415; 71045; 80053; 83880; 84484; 85025; 93005; 99285

== ENCOUNTER 2021-12-05 20:14 | Emergency (ER) | payer MEDICAID ==
[~2021-12-05] VITALS: Ht 167.6 cm; Wt 100.0 kg
[~2021-12-05 20:14] MED LIST changes: +MECL-159 PO
[2021-12-05] MEDS ORDERED: ibuprofen 200mg tablet PO ONE (21:20)
[2021-12-05 21:30] VITALS: BP 140/80
== END 2021-12-05 21:32 | disposition home or self-care (01) ==
LOC: ER 20:15
DX: R07.89 Other chest pain (principal); R05.9 Cough, unspecified; I10 Essential (primary) hypertension; F41.9 Anxiety disorder, unspecified; F31.9 Bipolar disorder, unspecified; F12.90 Cannabis use, unspecified, uncomplicated; Z98.890 Other specified postprocedural states; Z88.5 Allergy status to narcotic agent; Z88.8 Allergy status to other drugs, medicaments and biological substances; Z79.899 Other long term (current) drug therapy
CPT/HCPCS: 99282; 99283

== ENCOUNTER 2021-12-12 18:18 | Inpatient (IN) | payer MEDICAID ==
[~2021-12-12] VITALS: Ht 167.6 cm; Wt 102.0 kg
[2021-12-12 23:05] VITALS: BP 105/58
[2021-12-13] MEDS ORDERED: HYDROcodone/acetaminophen 10/325mg tab PO ONE
[2021-12-13] MEDS ORDERED: ondansetron/PF 4mg/2ml inj IV PRN (00:15)
[2021-12-13] MEDS ORDERED: acetaminophen 325mg tablet PO PRN ×2 (00:15)
[2021-12-13] MEDS ORDERED: magnesium hydroxide 30ml (MOM) UD suspension PO PRN (00:15)
[2021-12-13] MEDS ORDERED: HYDROcodone/acetaminophen 5mg/325mg tablet PO PRN (00:15)
[2021-12-13] MEDS ORDERED: diphenhydrAMINE 25mg capsule PO PRN (00:15)
[2021-12-13] MEDS ORDERED: potassium Cl 20 mEq SR tablet PO PRN ×2 (00:15)
[2021-12-13] MEDS ORDERED: magnesium Cl slow-release 64mg tablet PO PRN (00:15)
[2021-12-13] MEDS ORDERED: magnesium 2GM in 50ml NS 50 ML IV PRN (00:15)
[2021-12-13] MEDS ORDERED: mag hydrox/Alum hydrox/simeth 30ml oral suspension PO PRN (00:15)
[2021-12-13] MEDS ORDERED: bisacodyl 10mg suppository rectal RC PRN (00:15)
[2021-12-13] MEDS ORDERED: ondansetron 4mg rapidly disintigrating tab PO PRN (00:15)
[2021-12-13] MEDS ORDERED: potassium CL 10mEq/100ml bag 100 ML IV PRN (00:15)
[2021-12-13] MEDS ORDERED: diphenhydrAMINE 50 mg/ml inj IV PRN (00:15)
[2021-12-13] MEDS ORDERED: metoclopramide 5 mg/ml inj IV PRN (00:15)
[2021-12-13] MEDS ORDERED: magnesium 4gm in 100ml NS 100 ML IV PRN (00:15)
[2021-12-13] MEDS ORDERED: TERB250T89 PO (00:58)
[2021-12-13] MEDS ORDERED: DULO30CA52 PO (00:58)
[2021-12-13] MEDS ORDERED: FLUT15.845 NS (00:58)
[2021-12-13] MEDS ORDERED: DULO60CA65 PO (00:58)
[2021-12-13] MEDS ORDERED: FERR325T29 PO (00:58)
[2021-12-13] MEDS ORDERED: PROP60TA19 PO (00:58)
[2021-12-13] MEDS ORDERED: OLAN7.5T18 PO (00:58)
[2021-12-13] MEDS ORDERED: LORA10TA7 PO (00:58)
[2021-12-13] MEDS: normal saline 1000ml 1,000 ML IV SCH ×3 (01:54→20:36)
[2021-12-13 02:28] LABS: BASOPHILS % (AUTO) 0.5 % (0-1); EOSINOPHILS # (AUTO) 0.2 X10'3 (0-0.9); EOSINOPHILS % (AUTO) 2.3 % (0-6); HEMATOCRIT 28.1 % (35.0-45.0); HEMOGLOBIN 9.4 g/dl (12.0-16.0); LYMPHOCYTES # (AUTO) 1.9 X10'3 (1.1-4.8); LYMPHOCYTES % (AUTO) 23.6 % (21-51); MEAN CORPUSCULAR HEMOGLOBIN 28.8 PG (27.0-31.0); MEAN CORPUSCULAR HGB CONC 33.3 g/dL (33.0-36.5); MEAN CORPUSCULAR VOLUME 86.5 FL (78-98); MONOCYTES # (AUTO) 0.6 X10'3 (0-0.9); MONOCYTES % (AUTO) 7.6 % (2-12); NEUTROPHILS # (AUTO) 5.2 X10'3 (1.8-7.7); PLATELET COUNT 486 X10'3 (140-440); RED BLOOD COUNT 3.25 X10'6 (4.20-5.60); RED CELL DISTRIBUTION WIDTH 17.3 % (11.5-14.5); WHITE BLOOD COUNT 7.9 X10'3 (4.5-11.0)
[2021-12-13 02:42] LABS: APTT 30 SECONDS (22-32)
[2021-12-13 02:43] LABS: ALANINE AMINOTRANSFERASE 77 U/L (12-78); ALBUMIN 2.5 G/DL (3.4-5.0); ALBUMIN/GLOBULIN RATIO 0.7 (1.1-1.5); ALKALINE PHOSPHATASE 170 IU/L (46-116); ANION GAP 4 (8-16); ASPARTATE AMINO TRANSFERASE 66 U/L (10-37); BILIRUBIN,TOTAL 0.2 MG/DL (0.1-1.0); BLOOD UREA NITROGEN 25 MG/DL (7-18); BUN/CREATININE RATIO 34.2 (6.6-38.0); CALCIUM 8.7 MG/DL (8.5-10.1); CHLORIDE 109 MMOL/L (99-107); CREATININE 0.73 MG/DL (0.40-0.90); GLUCOSE 82 MG/DL (70-104); MAGNESIUM 2.1 MG/DL (1.5-2.4); POTASSIUM 4.4 MMOL/L (3.5-5.1); SODIUM 140 MMOL/L (135-145); TOTAL CARBON DIOXIDE 27.1 MMOL/L (24-32); eGFR 85 ML/MIN
[2021-12-13 03:20] LABS: CLARITY,URINE CLEAR (Clear); COLOR,URINE YELLOW (Yellow); GLUCOSE, URINE NEGATIVE (Neg); KETONES,URINE NEGATIVE (Neg); LEUKOCYTE ESTERASE ,URINE NEGATIVE (Neg); NITRITES, URINE NEGATIVE (Neg); OCCULT BLOOD,URINE NEGATIVE (Neg); PROTEIN,URINE NEGATIVE (Neg); UROBILINOGEN,URINE 0.2 E.U/dL (0.2-1.0)
[2021-12-13 03:31] LABS: UA COLLECTION TYPE NON-SPECIFIED
--- NOTE | 2021-12-13 07:26 | NUR ---
late entry pharmacist oliver came to see pt to discuss home meds overnight
[2021-12-13 07:27] VITALS: BP 99/72
[2021-12-13] MEDS: K and/or MAG REPLACEMENT MC SCH ×2 (08:00→20:00)
[2021-12-13] MEDS: fluticasone nasal spray 16GM bottle NS SCH (09:46)
[2021-12-13] MEDS: docusate sod 100mg capsule PO SCH ×2 (09:47→20:36)
[2021-12-13] MEDS: duloxetine 30mg CAPSULE.DR PO SCH ×2 (09:48→11:52)
[2021-12-13] MEDS: OLANZapine 2.5MG tablet PO SCH ×2 (09:48→20:37)
[2021-12-13] MEDS: OLANZAPINE 5 MG TABLET PO SCH ×2 (09:48→20:37)
[2021-12-13] MEDS: loratadine 10mg tablet PO SCH (09:49)
[2021-12-13] MEDS: HYDROcodone/acetaminophen 10/325mg tab PO PRN ×3 (10:50→19:48)
[2021-12-13 11:00] VITALS: BP 127/72
[2021-12-13] MEDS: clonazePAM 0.5mg tablet PO PRN (13:14)
[2021-12-13 18:00] VITALS: BP 124/70
--- NOTE | 2021-12-13 18:23 | NUR ---
Problems reprioritized. Patient report given, questions answered & plan of care reviewed with Lexy WELCH Traveler.
[2021-12-13] MEDS ORDERED: clonazePAM 0.5mg tablet PO SCH (20:00)
[2021-12-13] MEDS: propranolol 40mg tablet PO SCH (20:44)
[2021-12-13] MEDS ORDERED: temazepam 15mg capsule PO PRN (21:00)
[2021-12-14] VITALS (20 sets, daily range): BP systolic 104–160; BP diastolic 57–96
[2021-12-14] MEDS: HYDROcodone/acetaminophen 10/325mg tab PO PRN ×4 (00:07→12:27)
[2021-12-14 06:40] LABS: BASOPHILS % (AUTO) 0.4 % (0-1); EOSINOPHILS # (AUTO) 0.1 X10'3 (0-0.9); EOSINOPHILS % (AUTO) 1.4 % (0-6); HEMATOCRIT 24.7 % (35.0-45.0); HEMOGLOBIN 8.4 g/dl (12.0-16.0); LYMPHOCYTES # (AUTO) 1.6 X10'3 (1.1-4.8); LYMPHOCYTES % (AUTO) 27.5 % (21-51); MEAN CORPUSCULAR HEMOGLOBIN 29.8 PG (27.0-31.0); MEAN CORPUSCULAR HGB CONC 34.1 g/dL (33.0-36.5); MEAN CORPUSCULAR VOLUME 87.5 FL (78-98); MEAN PLATELET VOLUME 7.7 FL (7.4-10.4); MONOCYTES # (AUTO) 0.5 X10'3 (0-0.9); MONOCYTES % (AUTO) 8.4 % (2-12); NEUTROPHILS # (AUTO) 3.5 X10'3 (1.8-7.7); NEUTROPHILS % (AUTO) 62.3 % (42-75); PLATELET COUNT 446 X10'3 (140-440); RED BLOOD COUNT 2.83 X10'6 (4.20-5.60); RED CELL DISTRIBUTION WIDTH 17.3 % (11.5-14.5); WHITE BLOOD COUNT 5.7 X10'3 (4.5-11.0)
--- NOTE | 2021-12-14 06:48 | NUR ---
Patient in room MARY 345. I have received report from Kitty WELCH Traveler and had the opportunity to ask questions and assume patient care.
[2021-12-14 06:58] LABS: ALANINE AMINOTRANSFERASE 159 U/L (12-78); ALBUMIN 2.4 G/DL (3.4-5.0); ALBUMIN/GLOBULIN RATIO 0.7 (1.1-1.5); ALKALINE PHOSPHATASE 313 IU/L (46-116); ANION GAP 9 (8-16); ASPARTATE AMINO TRANSFERASE 165 U/L (10-37); BILIRUBIN,TOTAL 0.3 MG/DL (0.1-1.0); BLOOD UREA NITROGEN 15 MG/DL (7-18); BUN/CREATININE RATIO 21.7 (6.6-38.0); CALCIUM 9.3 MG/DL (8.5-10.1); CHLORIDE 107 MMOL/L (99-107); CREATININE 0.69 MG/DL (0.40-0.90); GLUCOSE 83 MG/DL (70-104); POTASSIUM 4.2 MMOL/L (3.5-5.1); SODIUM 141 MMOL/L (135-145); TOTAL PROTEIN 5.7 G/DL (6.4-8.2); eGFR > 90 ML/MIN
--- NOTE | 2021-12-14 06:58 | NUR ---
paged picc for a PIV, hard stick. Tried 2x. Surgery today at 1400.
[2021-12-14] MEDS: fluticasone nasal spray 16GM bottle NS SCH (08:00)
[2021-12-14] MEDS: K and/or MAG REPLACEMENT MC SCH ×2 (08:00→20:00)
[2021-12-14] MEDS: OLANZapine 2.5MG tablet PO SCH ×2 (08:14→20:15)
[2021-12-14] MEDS: loratadine 10mg tablet PO SCH (08:14)
[2021-12-14] MEDS: docusate sod 100mg capsule PO SCH ×2 (08:14→20:15)
[2021-12-14] MEDS: duloxetine 30mg CAPSULE.DR PO SCH ×2 (08:15→12:27)
[2021-12-14] MEDS: OLANZAPINE 5 MG TABLET PO SCH ×2 (08:17→20:19)
[2021-12-14] MEDS: clonazePAM 0.5mg tablet PO PRN (08:20)
[2021-12-14] MEDS: normal saline 1000ml 1,000 ML IV SCH (09:30)
--- NOTE | 2021-12-14 14:16 | NUR ---
called charge nurse in the OR Orly regarding pt's glucose level of 65 before sx. Directed to call Dr Ramos the anesthesiologist if he wants the pt to get IV glucose or hold off. Left a message to call back. 's number [phone] cell.
[2021-12-14] MEDS ORDERED: dextrose 50%-water 50ml dispensing syringe IV PRN ×2 (14:50)
[2021-12-14] MEDS ORDERED: vancomycin 1,000mg inj ONE ×2 (14:50→18:14)
--- NOTE | 2021-12-14 15:15 | NUR ---
Pt's glucose is low at 65, rechecked at 68. gave 25mg of IV dextrose before pt taken to surgery. instructed to have a recheck at 1530. OR and Dr Ramos aware.
[2021-12-14] MEDS ORDERED: TRANEXAMIC ACID 1 GM IN NACL,ISO-OS 100 ML IV ONE (15:30)
[2021-12-14] MEDS ORDERED: cefazolin/dext.iso 2gm/100ml 50 ML IV ONE (15:35)
[2021-12-14] MEDS ORDERED: VANCOmycin 1250MG/NS 250ml Bag 250 ML IV ONE (15:35)
[2021-12-14] MEDS ORDERED: midazolam 1 mg/ML 2ml injection ONE (15:52)
[2021-12-14] MEDS ORDERED: fentaNYL /PF 50mcg/ml 5ml ampule ONE (15:52)
[2021-12-14] MEDS ORDERED: ketamine 50mg/5ml syringe ONE (16:44)
[2021-12-14] MEDS ORDERED: meperidine/PF 25mg/ml syringe IV PRN ×2 (17:10)
[2021-12-14] MEDS ORDERED: ondansetron/PF 4mg/2ml inj IV PRN ×2 (17:10→19:10)
[2021-12-14] MEDS ORDERED: HYDROmorphone/PF 0.2 MG/ML SYRINGE IV PRN ×2 (17:10)
[2021-12-14] MEDS ORDERED: ringers solution, lacted 1,000 ML IV SCH (17:10)
[2021-12-14] MEDS ORDERED: dexamethasone sod phosphate 4mg/ml inj. ONE (17:37)
[2021-12-14] MEDS ORDERED: neostigmine methylsulfate 1 MG/ML 10ml vial ONE (17:37)
[2021-12-14] MEDS ORDERED: LIDOcaine 2% (20mg/ml) 5ml vial ONE (17:37)
[2021-12-14] MEDS ORDERED: propofol inj 20 ML IV ONE (17:37)
[2021-12-14] MEDS ORDERED: rocuronium 10mg/ml inj IV ONE (17:37)
[2021-12-14] MEDS ORDERED: ondansetron/PF 4mg/2ml inj ONE (17:37)
[2021-12-14] MEDS ORDERED: glycopyrrolate 0.2mg/ml inj ONE (17:37)
--- NOTE | 2021-12-14 18:36 | NUR ---
Problems reprioritized. Patient report given, questions answered & plan of care reviewed with Kitty WELCH traveler.
--- NOTE | 2021-12-14 18:45 | NUR ---
Received from OR via ORTHO BED WITH IAMARIA FERNANDA, accompanied by Anesthesiologist DELVIS and report given by Anesthesiolgist. PATIENT WITH ABDUCTION WEDGE IN PLACE. HOLBROOK CATHETER IN PLACE WELL WITH CLEAR YELLOW URINE IN ATRIUM. PATIENT WITH 20G PIV IN RIGHT UE AND LEFT AC WELL. SCDS DONNED UPON ARRIVAL. VSS. 10L MASK ON WITH 100% SATURATIONS. Addendum: 12/14/21 at 3 by Leland Ch RN, RN Amended: Links added.
[2021-12-14] MEDS ORDERED: magnesium hydroxide 30ml (MOM) UD suspension PO PRN (19:10)
[2021-12-14] MEDS ORDERED: HYDROcodone/acetaminophen 10/325mg tab PO PRN (19:10)
[2021-12-14] MEDS ORDERED: acetaminophen 325mg tablet PO PRN (19:10)
[2021-12-14] MEDS ORDERED: bisacodyl 10mg suppository rectal RC PRN (19:10)
[2021-12-14] MEDS ORDERED: diphenhydrAMINE 25mg capsule PO PRN ×2 (19:10)
[2021-12-14 19:17] LABS: ISTAT CREATININE 0.7 mg/dL (0.6-1.1); ISTAT HGB 13.3 g/dl (12.0-16.0); ISTAT IONIZED CALCIUM 1.36 mmol/L (1.03-1.32); ISTAT K 4.3 mmol/L (3.5-5.1); POC BUN/CREATININE RATIO 14.3 (6.6-38.0)
--- NOTE | 2021-12-14 19:55 | NUR ---
Report called to receiving nurse. Transferred via ORTHO BED WITH OHFT, NO Belongings WITH PATIENT PRE OP OR POST OP. REPORT CALLED TO ACCEPTING RN. ALL QUESTIONS ANSWERED AND REPORT COMPLETED. Special Issues communicated to receiving nurse.TRANSPORTED PATIENT TO THE SURGICAL FLOOR. BED PARKED IN 245A. NO RN PRESENT. NO ASSEMBLER CARDS AND ANNOUNCEMENTS PRESENT, NO VS MACHINE. LOWERED BED AND SPOKE TO BARREL COATER NURSE PREMA. REBEKAH LLOYD CAME TO ASSESS PATIENT AND FIND A VS MACHINE AND FREIGHT COORDINATOR. CALL LIGHT PRESENT WELL BEDSIDE PATIENT TABLE WITH WATER. 2 RAILS UP FOR SAFETY. Addendum: 12/14/21 at 2007 by Leland Crawford - REBEKAH RN Amended: Links added.
[2021-12-14] MEDS: sennosides 8.6mg tablet PO SCH (20:19)
[2021-12-14] MEDS: propranolol 40mg tablet PO SCH (21:07)
[2021-12-14] MEDS ORDERED: HYDROmorphone 1mg tablet (1/2 of 2mg tablet) PO PRN (21:55)
[2021-12-15] VITALS: BP 122/74
[2021-12-15] MEDS: normal saline 1000ml 1,000 ML IV SCH ×4 (00:55→22:15)
[2021-12-15] MEDS: HYDROmorphone 1 mg/ml syringe IV PRN ×2 (00:59→05:13)
[2021-12-15] MEDS: cefazolin/dext.iso 2gm/50ml 50 ML IV SCH ×2 (01:46→09:00)
[2021-12-15] MEDS: HYDROcodone/acetaminophen 10/325mg tab PO PRN ×3 (03:11→11:52)
[2021-12-15 04:00] VITALS: BP 107/66
[2021-12-15] MEDS ORDERED: cefazolin/dext.iso 2gm/100ml 100 ML IV SCH (06:00)
[2021-12-15] MEDS ORDERED: VANCOMYCIN 1,500MG inj. 1,500 MG in normal saline 500ml IV soln 500 ML IV SCH (06:00)
--- NOTE | 2021-12-15 06:21 | NUR ---
PT HAS POSITIVE SENSATION, MOVEMENT , BRISK CAP REFILL WARMTH AND COLOR PINK LLE ABDUCTOR PILLOW IN PLACE
--- NOTE | 2021-12-15 06:39 | NUR ---
Patient in room MARY 345. I have received report from Kitty WELCH and had the opportunity to ask questions and assume patient care.
[2021-12-15 07:00] VITALS: BP 112/60
[2021-12-15 07:08] LABS: LYMPHOCYTES # (AUTO) 2.2 X10'3 (1.1-4.8); MEAN CORPUSCULAR HEMOGLOBIN 29.9 PG (27.0-31.0)
[2021-12-15 07:09] LABS: BASOPHILS % (AUTO) 0.3 % (0-1); EOSINOPHILS % (AUTO) 0.2 % (0-6); HEMATOCRIT 27.7 % (35.0-45.0); HEMOGLOBIN 9.7 g/dl (12.0-16.0); LYMPHOCYTES % (AUTO) 21.4 % (21-51); MEAN CORPUSCULAR HGB CONC 34.9 g/dL (33.0-36.5); MEAN CORPUSCULAR VOLUME 85.7 FL (78-98); MEAN PLATELET VOLUME 7.8 FL (7.4-10.4); MONOCYTES % (AUTO) 9.6 % (2-12); NEUTROPHILS # (AUTO) 7.2 X10'3 (1.8-7.7); NEUTROPHILS % (AUTO) 68.5 % (42-75); PLATELET COUNT 635 X10'3 (140-440); RED BLOOD COUNT 3.23 X10'6 (4.20-5.60); RED CELL DISTRIBUTION WIDTH 16.3 % (11.5-14.5); WHITE BLOOD COUNT 10.5 X10'3 (4.5-11.0)
[2021-12-15] MEDS ORDERED: aspirin 325mg tablet, delayed-release (Ecotrin) PO ONE (07:30)
[2021-12-15 07:34] LABS: ALANINE AMINOTRANSFERASE 122 U/L (12-78); ALBUMIN 2.5 G/DL (3.4-5.0); ALBUMIN/GLOBULIN RATIO 0.7 (1.1-1.5); ALKALINE PHOSPHATASE 268 IU/L (46-116); ANION GAP 10 (8-16); ASPARTATE AMINO TRANSFERASE 79 U/L (10-37); BILIRUBIN,TOTAL 0.4 MG/DL (0.1-1.0); BLOOD UREA NITROGEN 13 MG/DL (7-18); BUN/CREATININE RATIO 14.8 (6.6-38.0); CALCIUM 8.4 MG/DL (8.5-10.1); CHLORIDE 106 MMOL/L (99-107); CREATININE 0.88 MG/DL (0.40-0.90); GLUCOSE 113 MG/DL (70-104); POTASSIUM 4.5 MMOL/L (3.5-5.1); SODIUM 138 MMOL/L (135-145); TOTAL CARBON DIOXIDE 21.7 MMOL/L (24-32); eGFR 69 ML/MIN
[2021-12-15] MEDS: duloxetine 30mg CAPSULE.DR PO SCH ×2 (07:40→12:51)
[2021-12-15] MEDS: loratadine 10mg tablet PO SCH (07:42)
[2021-12-15] MEDS: docusate sod 100mg capsule PO SCH ×2 (07:42→19:47)
[2021-12-15] MEDS: OLANZAPINE 5 MG TABLET PO SCH ×2 (07:45→19:47)
[2021-12-15] MEDS: OLANZapine 2.5MG tablet PO SCH ×2 (07:45→19:47)
[2021-12-15] MEDS: K and/or MAG REPLACEMENT MC SCH ×2 (08:00→19:52)
[2021-12-15] MEDS: fluticasone nasal spray 16GM bottle NS SCH (09:01)
[2021-12-15] MEDS: clonazePAM 0.5mg tablet PO PRN (12:53)
[2021-12-15 15:24] VITALS: BP 117/59
--- NOTE | 2021-12-15 16:50 | NUR ---
PAGER ID: [phone] MESSAGE: Hemal Surg [id number] Re: [place] 345a Patient IV went bad unable to start another, do we need IV access at this time? Patient only has oral give medications at this time.
[2021-12-15 18:00] VITALS: BP 100/64
--- NOTE | 2021-12-15 18:50 | NUR ---
Problems reprioritized. Patient report given, questions answered & plan of care reviewed with ludwig WELCH.
[2021-12-15] MEDS: HYDROmorphone 2mg tablet PO PRN ×2 (19:12→23:36)
[2021-12-15] MEDS: sennosides 8.6mg tablet PO SCH (22:09)
[2021-12-15] MEDS: propranolol 40mg tablet PO SCH (22:15)
[2021-12-16] VITALS (10 sets, daily range): BP systolic 96–133; BP diastolic 47–67
[2021-12-16] MEDS: HYDROmorphone 2mg tablet PO PRN ×5 (03:43→20:59)
[2021-12-16 05:27] LABS: BASOPHILS % (AUTO) 0.4 % (0-1); EOSINOPHILS # (AUTO) 0.1 X10'3 (0-0.9); EOSINOPHILS % (AUTO) 1.5 % (0-6); HEMATOCRIT 25.2 % (35.0-45.0); HEMOGLOBIN 8.4 g/dl (12.0-16.0); LYMPHOCYTES # (AUTO) 1.7 X10'3 (1.1-4.8); LYMPHOCYTES % (AUTO) 17.6 % (21-51); MEAN CORPUSCULAR HEMOGLOBIN 28.8 PG (27.0-31.0); MEAN CORPUSCULAR HGB CONC 33.4 g/dL (33.0-36.5); MEAN CORPUSCULAR VOLUME 86.3 FL (78-98); MEAN PLATELET VOLUME 7.6 FL (7.4-10.4); MONOCYTES # (AUTO) 1.2 X10'3 (0-0.9); MONOCYTES % (AUTO) 12.6 % (2-12); NEUTROPHILS # (AUTO) 6.4 X10'3 (1.8-7.7); NEUTROPHILS % (AUTO) 67.9 % (42-75); PLATELET COUNT 505 X10'3 (140-440); RED BLOOD COUNT 2.92 X10'6 (4.20-5.60); RED CELL DISTRIBUTION WIDTH 16.6 % (11.5-14.5); WHITE BLOOD COUNT 9.4 X10'3 (4.5-11.0)
[2021-12-16] MEDS: K and/or MAG REPLACEMENT MC SCH ×2 (08:00→19:58)
[2021-12-16 08:03] LABS: ALANINE AMINOTRANSFERASE 72 U/L (12-78); ALBUMIN 2.4 G/DL (3.4-5.0); ALBUMIN/GLOBULIN RATIO 0.7 (1.1-1.5); ALKALINE PHOSPHATASE 209 IU/L (46-116); ANION GAP 11 (8-16); ASPARTATE AMINO TRANSFERASE 30 U/L (10-37); BILIRUBIN,TOTAL 0.3 MG/DL (0.1-1.0); BLOOD UREA NITROGEN 10 MG/DL (7-18); BUN/CREATININE RATIO 16.1 (6.6-38.0); CALCIUM 8.3 MG/DL (8.5-10.1); CHLORIDE 108 MMOL/L (99-107); CREATININE 0.62 MG/DL (0.40-0.90); GLUCOSE 107 MG/DL (70-104); SODIUM 142 MMOL/L (135-145); TOTAL CARBON DIOXIDE 23.5 MMOL/L (24-32); TOTAL PROTEIN 5.7 G/DL (6.4-8.2); eGFR > 90 ML/MIN
[2021-12-16] MEDS: OLANZapine 2.5MG tablet PO SCH ×2 (08:58→20:08)
[2021-12-16] MEDS: docusate sod 100mg capsule PO SCH ×2 (08:58→20:08)
[2021-12-16] MEDS: OLANZAPINE 5 MG TABLET PO SCH ×2 (08:59→20:08)
[2021-12-16] MEDS: loratadine 10mg tablet PO SCH (08:59)
[2021-12-16] MEDS: duloxetine 30mg CAPSULE.DR PO SCH ×2 (09:00→11:44)
[2021-12-16] MEDS: fluticasone nasal spray 16GM bottle NS SCH (09:01)
[2021-12-16] MEDS ORDERED: albuterol 2.5 MG/3 ML nebule NEB PRN (09:45)
--- NOTE | 2021-12-16 10:35 | NUR ---
Initial: Pt admitted s/p fall w/ dislocation of L hip and hardware malfunction per EMR. Pt s/p revision arthroplasty 12/14. Currently on Regular diet w/ mostly 75-100% intake of meals meeting needs. LBM 12/13 receiving routine bowel care. Written high protein diet ed placed in pt chart. No nutrition intervention implemented at this time, will continue to monitor. Recs: 1. Continue Regular diet as tolerated 2. Bowel care per rx 3. Scaled wts Addendum: 12/16/21 at [address] Amended: Links added.
[2021-12-16] MEDS: ipratropium/albuterol 3ml nebule NEB SCH ×4 (11:00→23:34)
[2021-12-16 12:26] LABS: HEMATOCRIT 22.5 % (35.0-45.0); HEMOGLOBIN 7.7 g/dl (12.0-16.0); MEAN CORPUSCULAR HEMOGLOBIN 29.4 PG (27.0-31.0); MEAN CORPUSCULAR HGB CONC 34.1 g/dL (33.0-36.5); MEAN CORPUSCULAR VOLUME 86.3 FL (78-98); MEAN PLATELET VOLUME 7.7 FL (7.4-10.4); PLATELET COUNT 478 X10'3 (140-440); RED BLOOD COUNT 2.61 X10'6 (4.20-5.60); RED CELL DISTRIBUTION WIDTH 16.4 % (11.5-14.5); WHITE BLOOD COUNT 9.5 X10'3 (4.5-11.0)
[2021-12-16 16:14] LABS: OCCULT BLOOD STOOL NEGATIVE (Neg)
--- NOTE | 2021-12-16 17:28 | NUR ---
TEMPERATURE WENT FROM 98.8 TO 100.3 WITHIN 1 HR OF BLOOD TRANSFUSION START. DR CINTRON AWARE. PER DR CINTRON, GIVE TYLENOL AND THEN IF IT DOESNT GO DOWN THEN FOLLOW BLOOD TRANSFUSION FEVER PROTOCOL, I WILL FIND OUT ABOUT THIS PROTOCOL AND FOLLOW UP.
--- NOTE | 2021-12-16 17:50 | NUR ---
Rechecked temperature and she is now afebrile x2. I did not have to give tylenol. Will monitor but it seems to be the previous temperature may have been inaccurate. notified.
--- NOTE | 2021-12-16 18:58 | NUR ---
Report given to Desiree RN, all questions answered. Patient is sitting up in bed, talkative and has been more relaxed then previously in the shift. She is much less anxious at this time. Patient is finishing blood. Desiree is aware of monitoring for potential fevers and will finish documentation of blood transfusion.
[2021-12-16] MEDS: sennosides 8.6mg tablet PO SCH (20:09)
[2021-12-16] MEDS: propranolol 40mg tablet PO SCH (20:09)
[2021-12-17] MEDS: ipratropium/albuterol 3ml nebule NEB SCH ×6 (03:01→23:00)
[2021-12-17] MEDS: HYDROmorphone 2mg tablet PO PRN ×3 (03:23→19:13)
[2021-12-17 06:02] LABS: BASOPHILS % (AUTO) 0.5 % (0-1); EOSINOPHILS # (AUTO) 0.1 X10'3 (0-0.9); EOSINOPHILS % (AUTO) 1.7 % (0-6); HEMATOCRIT 22.1 % (35.0-45.0); HEMOGLOBIN 7.7 g/dl (12.0-16.0); LYMPHOCYTES # (AUTO) 1.8 X10'3 (1.1-4.8); LYMPHOCYTES % (AUTO) 20.3 % (21-51); MEAN CORPUSCULAR HEMOGLOBIN 30.1 PG (27.0-31.0); MEAN CORPUSCULAR HGB CONC 34.8 g/dL (33.0-36.5); MEAN CORPUSCULAR VOLUME 86.5 FL (78-98); MEAN PLATELET VOLUME 7.5 FL (7.4-10.4); MONOCYTES # (AUTO) 0.9 X10'3 (0-0.9); MONOCYTES % (AUTO) 10.6 % (2-12); NEUTROPHILS % (AUTO) 66.9 % (42-75); PLATELET COUNT 443 X10'3 (140-440); RED BLOOD COUNT 2.56 X10'6 (4.20-5.60); RED CELL DISTRIBUTION WIDTH 17.6 % (11.5-14.5); WHITE BLOOD COUNT 8.9 X10'3 (4.5-11.0)
[2021-12-17 06:40] LABS: ALANINE AMINOTRANSFERASE 42 U/L (12-78); ALBUMIN/GLOBULIN RATIO 0.6 (1.1-1.5); ALKALINE PHOSPHATASE 163 IU/L (46-116); ANION GAP 6 (8-16); ASPARTATE AMINO TRANSFERASE 18 U/L (10-37); BILIRUBIN,TOTAL 0.2 MG/DL (0.1-1.0); BLOOD UREA NITROGEN 10 MG/DL (7-18); BUN/CREATININE RATIO 14.9 (6.6-38.0); CALCIUM 8.6 MG/DL (8.5-10.1); CHLORIDE 107 MMOL/L (99-107); CREATININE 0.67 MG/DL (0.40-0.90); GLUCOSE 108 MG/DL (70-104); POTASSIUM 4.1 MMOL/L (3.5-5.1); SODIUM 140 MMOL/L (135-145); TOTAL CARBON DIOXIDE 26.8 MMOL/L (24-32); TOTAL PROTEIN 5.1 G/DL (6.4-8.2); eGFR > 90 ML/MIN
[2021-12-17 07:00] VITALS: BP 110/49
[2021-12-17] MEDS: duloxetine 30mg CAPSULE.DR PO SCH ×2 (07:50→12:38)
[2021-12-17] MEDS: OLANZapine 2.5MG tablet PO SCH ×2 (07:50→19:13)
[2021-12-17] MEDS: loratadine 10mg tablet PO SCH (07:50)
[2021-12-17] MEDS: clonazePAM 0.5mg tablet PO PRN ×2 (07:50→22:20)
[2021-12-17] MEDS: OLANZAPINE 5 MG TABLET PO SCH ×2 (07:50→19:13)
[2021-12-17] MEDS: docusate sod 100mg capsule PO SCH ×2 (07:51→19:13)
[2021-12-17] MEDS: fluticasone nasal spray 16GM bottle NS SCH (07:51)
[2021-12-17] MEDS: K and/or MAG REPLACEMENT MC SCH ×2 (07:51→20:00)
[2021-12-17 11:56] LABS: HEMATOCRIT 23.4 % (35.0-45.0); HEMOGLOBIN 8.2 g/dl (12.0-16.0); MEAN CORPUSCULAR HEMOGLOBIN 29.5 PG (27.0-31.0); MEAN CORPUSCULAR HGB CONC 34.8 g/dL (33.0-36.5); MEAN CORPUSCULAR VOLUME 84.6 FL (78-98); MEAN PLATELET VOLUME 7.5 FL (7.4-10.4); PLATELET COUNT 516 X10'3 (140-440); RED BLOOD COUNT 2.77 X10'6 (4.20-5.60); RED CELL DISTRIBUTION WIDTH 17.3 % (11.5-14.5); WHITE BLOOD COUNT 9.4 X10'3 (4.5-11.0)
[2021-12-17 12:19] VITALS: BP 98/62
--- NOTE | 2021-12-17 15:09 | NUR ---
PT STOPPED SVN TX STATING THAT THE TASTE WAS REAL BAD AND SHE DIDN'T LIKE IT, NO POST VITALS DONE PT STATED SHE NEEDED TO RINSE HER MOUTH OUT AND SHE FELT OK. NO DISTRESS NOTED ON ROOM AIR Addendum: 12/17/21 at 1510 by Tamera Rodríguez RT Amended: Links added.
--- NOTE | 2021-12-17 18:05 | NUR ---
Patient in room MARY 345A. I have received report from REBEKAH Stout and had the opportunity to ask questions and assume patient care.
--- NOTE | 2021-12-17 18:09 | NUR ---
Gave report to Vera WELCH.
[2021-12-17 19:00] VITALS: BP 117/62
[2021-12-17] MEDS: sennosides 8.6mg tablet PO SCH (21:08)
[2021-12-17] MEDS: propranolol 40mg tablet PO SCH (21:08)
[2021-12-17 23:52] VITALS: BP 98/51
[2021-12-18] MEDS: ipratropium/albuterol 3ml nebule NEB SCH ×3 (04:01→11:41)
[2021-12-18] MEDS: HYDROmorphone 2mg tablet PO PRN ×2 (04:37→14:16)
[2021-12-18 06:01] LABS: BASOPHILS % (AUTO) 0.4 % (0-1); EOSINOPHILS # (AUTO) 0.2 X10'3 (0-0.9); EOSINOPHILS % (AUTO) 3.1 % (0-6); HEMATOCRIT 23.5 % (35.0-45.0); LYMPHOCYTES # (AUTO) 1.6 X10'3 (1.1-4.8); LYMPHOCYTES % (AUTO) 21.3 % (21-51); MEAN CORPUSCULAR HEMOGLOBIN 29.8 PG (27.0-31.0); MEAN CORPUSCULAR HGB CONC 33.9 g/dL (33.0-36.5); MEAN CORPUSCULAR VOLUME 87.8 FL (78-98); MEAN PLATELET VOLUME 7.7 FL (7.4-10.4); MONOCYTES # (AUTO) 0.8 X10'3 (0-0.9); MONOCYTES % (AUTO) 10.3 % (2-12); NEUTROPHILS # (AUTO) 4.9 X10'3 (1.8-7.7); NEUTROPHILS % (AUTO) 64.9 % (42-75); PLATELET COUNT 543 X10'3 (140-440); RED BLOOD COUNT 2.67 X10'6 (4.20-5.60); RED CELL DISTRIBUTION WIDTH 17.6 % (11.5-14.5); WHITE BLOOD COUNT 7.5 X10'3 (4.5-11.0)
--- NOTE | 2021-12-18 06:23 | NUR ---
Problems reprioritized. Patient report given, questions answered & plan of care reviewed with REBEKAH Vallejo.
[2021-12-18 06:36] LABS: ALANINE AMINOTRANSFERASE 31 U/L (12-78); ALBUMIN 2.1 G/DL (3.4-5.0); ALBUMIN/GLOBULIN RATIO 0.6 (1.1-1.5); ALKALINE PHOSPHATASE 156 IU/L (46-116); ANION GAP 8 (8-16); ASPARTATE AMINO TRANSFERASE 12 U/L (10-37); BILIRUBIN,TOTAL 0.3 MG/DL (0.1-1.0); BLOOD UREA NITROGEN 9 MG/DL (7-18); BUN/CREATININE RATIO 14.5 (6.6-38.0); CALCIUM 9.1 MG/DL (8.5-10.1); CHLORIDE 108 MMOL/L (99-107); CREATININE 0.62 MG/DL (0.40-0.90); GLUCOSE 91 MG/DL (70-104); POTASSIUM 4.3 MMOL/L (3.5-5.1); SODIUM 143 MMOL/L (135-145); TOTAL PROTEIN 5.6 G/DL (6.4-8.2); eGFR > 90 ML/MIN
--- NOTE | 2021-12-18 06:48 | NUR ---
Patient in room MARY 345. I have received report from sivakumar rosenthal and had the opportunity to ask questions and assume patient care.
[2021-12-18 07:30] VITALS: BP 103/56
[2021-12-18] MEDS: K and/or MAG REPLACEMENT MC SCH (07:30)
[2021-12-18] MEDS: loratadine 10mg tablet PO SCH (07:45)
[2021-12-18] MEDS: OLANZAPINE 5 MG TABLET PO SCH (07:45)
[2021-12-18] MEDS: OLANZapine 2.5MG tablet PO SCH (07:45)
[2021-12-18] MEDS: docusate sod 100mg capsule PO SCH (07:45)
[2021-12-18] MEDS: duloxetine 30mg CAPSULE.DR PO SCH ×2 (07:45→12:42)
[2021-12-18] MEDS: fluticasone nasal spray 16GM bottle NS SCH (07:45)
[2021-12-18 11:05] VITALS: BP 113/57
--- NOTE | 2021-12-18 14:38 | NUR ---
PT DISCHARGED IN STABLE CONDITION. TRANSFERRING TO [facility]. NO IV TO DC. ALL BELONGINGS IN HAND. GAVE REPORT TO [facility], INFORMED RECEIVING NURSE PT NEEDS TO FOLLOW UP WITH DR MENDEZ IN 2 WEEKS FOR STAPLE REMOVAL. Addendum: 12/18/21 at 1440 by Kathi Sim RN Amended: Links added.
== END 2021-12-18 13:55 | DRG 323 ==
LOC: SUR 3N 21:36
PROVIDERS: ADMIT Family Medicine; ATTEND Family Medicine
PROC: 0SUB09Z Supplement Left Hip Joint with Liner, Open Approach (ICD-10-PCS; 2021-12-14)
PROC: 30233N1 Transfusion of Nonautologous Red Blood Cells into Peripheral Vein, Percutaneous Approach (ICD-10-PCS; 2021-12-14)
PROC: 0SPB09Z Removal of Liner from Left Hip Joint, Open Approach (ICD-10-PCS; principal; 2021-12-14 15:50)
DX: T84.021A Dislocation of internal left hip prosthesis, initial encounter (principal); D64.9 Anemia, unspecified; E66.01 Morbid (severe) obesity due to excess calories; I10 Essential (primary) hypertension; Y79.2 Prosthetic and other implants, materials and accessory orthopedic devices associated with adverse incidents; E78.5 Hyperlipidemia, unspecified; F12.90 Cannabis use, unspecified, uncomplicated; F31.9 Bipolar disorder, unspecified; F41.0 Panic disorder [episodic paroxysmal anxiety]; W01.0XXA Fall on same level from slipping, tripping and stumbling without subsequent striking against object, initial encounter; R74.01 Elevation of levels of liver transaminase levels; F41.1 Generalized anxiety disorder; F43.10 Post-traumatic stress disorder, unspecified; Z82.49 Family history of ischemic heart disease and other diseases of the circulatory system; Z80.7 Family history of other malignant neoplasms of lymphoid, hematopoietic and related tissues; Z82.5 Family history of asthma and other chronic lower respiratory diseases; Z86.16 Personal history of COVID-19; Z68.36 Body mass index [BMI] 36.0-36.9, adult; Z88.5 Allergy status to narcotic agent; Z79.899 Other long term (current) drug therapy; Y93.89 Activity, other specified; Y92.89 Other specified places as the place of occurrence of the external cause; Y99.8 Other external cause status
CPT/HCPCS: 36000; 36415; 36430; 71045; 76937; 80047; 80053; 81003; 82272; 82948; 83605; 83735; 85025; 85027; 85610; 85730; 86885; 86900; 86901; 86920; 87040; 87081; 93005; 94640; 94760; 97110; 97116; 97162; 97530; A4215; A4618; A6223; A6253; A6449; A6454; A7000; C1758; C1776; G0378; J0690; J1100; J1170; J1644; J2175; J2250; J2405; J2704; J2710; J3010; J3370; J3490; J7030; J7040; J7120; P9016

== ENCOUNTER 2022-02-12 07:00 | Emergency (ER) | payer MEDICAID ==
[~2022-02-12] VITALS: Ht 167.6 cm; Wt 111.4 kg
[~2022-02-12 07:00] MED LIST changes: -BISA10SU11 RC; -CELE100C98 PO; -CHOL100046 PO; -CLON1TAB12 PO; -CLON1TAB96 PO; -DOCU100C40 PO; +FERR325T29 PO; +FLUT15.845 NS; -FLUT16SP NS; -HYDROchlorothiazide tablet PO; -LISI10TA27 PO; -LORA10TA65 PO; +LORA10TA7 PO; -MECL-159 PO; -ONDA4TAB12 PO; -POLY15DR31 EACHEYE; +PROP60TA19 PO; -ROBDML PO; -TRAZ-251 PO
[2022-02-12 07:08] VITALS: BP 145/82
[2022-02-13] MEDS ORDERED: PRAZ1CAP5 PO (01:57)
[2022-02-13] MEDS ORDERED: CLON1TAB13 PO (01:57)
[2022-02-13] MEDS ORDERED: TOPI25TA49 PO (01:59)
[2022-02-13] MEDS ORDERED: ESZO3TAB40 PO (01:59)
[2022-02-13] MEDS ORDERED: CITA40TA16 PO (01:59)
[2022-02-13] MEDS ORDERED: QUET25TA36 PO (01:59)
== END 2022-02-12 09:55 | disposition home or self-care (01) ==
LOC: ER 07:01
DX: B34.9 Viral infection, unspecified (principal); Z20.822 Contact with and (suspected) exposure to COVID-19; Z88.5 Allergy status to narcotic agent; Z88.8 Allergy status to other drugs, medicaments and biological substances; Z79.899 Other long term (current) drug therapy
CPT/HCPCS: 87502; 87503; 87635; 99283; C9803

== ENCOUNTER 2022-02-12 20:59 | Inpatient (IN) | payer MEDICAID ==
[~2022-02-12] VITALS: Ht 167.6 cm; Wt 111.4 kg
[2022-02-12] MEDS ORDERED: LORazepam 2 mg/ml vial IV ONE ×2 (21:55→23:35)
[2022-02-12] MEDS ORDERED: normal saline 1000ML IV soln IVB ONE (21:55)
[2022-02-12] MEDS ORDERED: haloperidol lactate 5mg/ml inj IM ONE (21:55)
[2022-02-12 22:00] LABS: BASOPHILS # (AUTO) 0.1 X10'3 (0-0.2); BASOPHILS % (AUTO) 0.3 % (0-1); EOSINOPHILS # (AUTO) 0.2 X10'3 (0-0.9); EOSINOPHILS % (AUTO) 1.1 % (0-6); HEMOGLOBIN 9.9 g/dl (12.0-16.0); LYMPHOCYTES % (AUTO) 10.8 % (21-51); MEAN CORPUSCULAR VOLUME 84.8 FL (78-98); MEAN PLATELET VOLUME 7.5 FL (7.4-10.4); MONOCYTES % (AUTO) 5.8 % (2-12); NEUTROPHILS # (AUTO) 14.8 X10'3 (1.8-7.7); PLATELET COUNT 521 X10'3 (140-440); RED BLOOD COUNT 3.54 X10'6 (4.20-5.60); RED CELL DISTRIBUTION WIDTH 16.6 % (11.5-14.5); WHITE BLOOD COUNT 18.1 X10'3 (4.5-11.0)
[2022-02-12 22:06] LABS: ALBUMIN 3.3 G/DL (3.4-5.0); ANION GAP 14 (8-16); BILIRUBIN,TOTAL 0.2 MG/DL (0.1-1.0); BLOOD UREA NITROGEN 13 MG/DL (7-18); BUN/CREATININE RATIO 16.5 (6.6-38.0); CALCIUM 9.8 MG/DL (8.5-10.1); CHLORIDE 102 MMOL/L (99-107); CREATININE 0.79 MG/DL (0.40-0.90); GLUCOSE 132 MG/DL (70-104); POTASSIUM 3.8 MMOL/L (3.5-5.1); SODIUM 140 MMOL/L (135-145); TOTAL CARBON DIOXIDE 24.5 MMOL/L (24-32); TOTAL PROTEIN 8.2 G/DL (6.4-8.2); eGFR 78 ML/MIN
[2022-02-12 22:07] LABS: ALANINE AMINOTRANSFERASE 17 U/L (12-78); ALBUMIN/GLOBULIN RATIO 0.7 (1.1-1.5); ALKALINE PHOSPHATASE 151 IU/L (46-116); ASPARTATE AMINO TRANSFERASE 15 U/L (10-37); LIPASE 120 U/L (73-393)
[2022-02-12] MEDS ORDERED: IOHEXOL 12MG/ML oral solution 500 ML BOTTLE PO ONE (22:15)
[2022-02-12] MEDS ORDERED: piperacillin/tazo 3.375gm/50ml 50 ML IV ONE (23:25)
[2022-02-12] MEDS ORDERED: HYDROmorphone 1 mg/ml syringe IV ONE (23:35)
--- NOTE | 2022-02-12 23:45 | NUR ---
PT COMPLAINING OF PAIN. KAREN LUX IN ROOM TALKING TO PT. CXR AT BEDSIDE. PROVIDER WILL PUT IN NEW ORDERS FOR PAIN AND ANTIBIOTIC MEDS.
[2022-02-13] MEDS ORDERED: HYDROmorphone inj. 0.5 MG/0.5 ML DISP.SYRIN IV PRN
[2022-02-13] MEDS ORDERED: HYDROcodone/acetaminophen 10/325mg tab PO PRN
[2022-02-13] MEDS ORDERED: mag hydrox/Alum hydrox/simeth 30ml oral suspension PO PRN
[2022-02-13] MEDS ORDERED: metoclopramide 5 mg/ml inj IV PRN
[2022-02-13] MEDS ORDERED: HYDROcodone/acetaminophen 5mg/325mg tablet PO PRN
[2022-02-13] MEDS ORDERED: magnesium hydroxide 30ml (MOM) UD suspension PO PRN
[2022-02-13] MEDS ORDERED: acetaminophen 325mg tablet PO PRN ×2
[2022-02-13] MEDS ORDERED: HYDROmorphone/PF 0.2 MG/ML SYRINGE IV PRN
[2022-02-13] MEDS ORDERED: ondansetron/PF 4mg/2ml inj IV PRN
--- NOTE | 2022-02-13 00:26 | NUR ---
NG PLACED. PT TOLERATED PROCEDURE WELL. NOTES FEELING BETTER S/P PAIN MEDS AND ATIVAN.
[2022-02-13] MEDS ORDERED: PRAZ1CAP5 PO (01:57)
[2022-02-13] MEDS ORDERED: CLON1TAB13 PO (01:57)
[2022-02-13] MEDS ORDERED: CITA40TA16 PO (01:59)
[2022-02-13] MEDS ORDERED: QUET25TA36 PO (01:59)
[2022-02-13] MEDS ORDERED: TOPI25TA49 PO (01:59)
[2022-02-13] MEDS ORDERED: ESZO3TAB40 PO (01:59)
[2022-02-13] MEDS: dextrose 5%-1/2 normal saline 1,000 ML IV SCH ×2 (02:14→09:52)
[2022-02-13] MEDS ORDERED: zolpidem 5mg tablet PO PRN (05:20)
[2022-02-13] MEDS ORDERED: clonazePAM 1mg tablet PO PRN (05:20)
[2022-02-13 06:02] LABS: ALBUMIN 2.8 G/DL (3.4-5.0); ANION GAP 9 (8-16); BLOOD UREA NITROGEN 12 MG/DL (7-18); BUN/CREATININE RATIO 21.8 (6.6-38.0); CALCIUM 8.6 MG/DL (8.5-10.1); CHLORIDE 107 MMOL/L (99-107); CREATININE 0.55 MG/DL (0.40-0.90); GLUCOSE 147 MG/DL (70-104); POTASSIUM 3.9 MMOL/L (3.5-5.1); SODIUM 142 MMOL/L (135-145); TOTAL CARBON DIOXIDE 26.2 MMOL/L (24-32); eGFR > 90 ML/MIN
[2022-02-13 06:18] LABS: BASOPHILS % (AUTO) 0.3 % (0-1); EOSINOPHILS % (AUTO) 0.1 % (0-6); HEMATOCRIT 26.5 % (35.0-45.0); HEMOGLOBIN 8.8 g/dl (12.0-16.0); LYMPHOCYTES # (AUTO) 1.8 X10'3 (1.1-4.8); LYMPHOCYTES % (AUTO) 11.9 % (21-51); MEAN CORPUSCULAR HEMOGLOBIN 28.2 PG (27.0-31.0); MEAN CORPUSCULAR HGB CONC 33.3 g/dL (33.0-36.5); MEAN CORPUSCULAR VOLUME 84.7 FL (78-98); MONOCYTES # (AUTO) 0.9 X10'3 (0-0.9); MONOCYTES % (AUTO) 5.7 % (2-12); NEUTROPHILS # (AUTO) 12.7 X10'3 (1.8-7.7); PLATELET COUNT 450 X10'3 (140-440); RED BLOOD COUNT 3.12 X10'6 (4.20-5.60); RED CELL DISTRIBUTION WIDTH 16.4 % (11.5-14.5); WHITE BLOOD COUNT 15.5 X10'3 (4.5-11.0)
--- NOTE | 2022-02-13 06:58 | NUR ---
Patient in room MARY 346. I have received report from genaro WELCH Traveler and had the opportunity to ask questions and assume patient care.
[2022-02-13 07:27] VITALS: BP 134/88
[2022-02-13] MEDS: duloxetine 30mg CAPSULE.DR PO SCH ×2 (08:11→12:15)
[2022-02-13] MEDS: citalopram 20mg tablet PO SCH (08:11)
[2022-02-13] MEDS: OLANZapine 2.5MG tablet PO SCH (08:12)
[2022-02-13] MEDS: ferrous sulfate 325mg tablet PO SCH ×3 (08:14→20:25)
[2022-02-13] MEDS: loratadine 10mg tablet PO SCH (08:14)
[2022-02-13] MEDS: docusate sod 100mg capsule PO SCH ×2 (08:14→20:25)
[2022-02-13] MEDS: topiramate 25mg tablet PO SCH ×2 (08:15→20:25)
--- NOTE | 2022-02-13 08:33 | NUR ---
NG not in place Pt pulled NG out Addendum: 02/13/22 at 0838 by Virgil Bhakta - STUDENT ELEUTERIO Amended: Links added.
[2022-02-13] MEDS: piperacillin/tazo 3.375gm/50ml 50 ML IV SCH ×3 (09:52→23:14)
[2022-02-13] MEDS: fluticasone nasal spray 16GM bottle NS SCH (09:53)
[2022-02-13 13:02] VITALS: BP 153/90
--- NOTE | 2022-02-13 18:30 | NUR ---
Problems reprioritized. Patient report given, questions answered & plan of care reviewed with John WELCH traveler.
[2022-02-13 20:00] VITALS: BP 153/77
[2022-02-13] MEDS: QUEtiapine 25mg tablet PO SCH (20:25)
[2022-02-13] MEDS: prazosin 1mg capsule PO SCH (20:25)
[2022-02-13] MEDS: propranolol 10mg tablet PO SCH (20:53)
[2022-02-14] VITALS (8 sets, daily range): BP systolic 115–151; BP diastolic 51–88
[2022-02-14] MEDS: dextrose 5%-1/2 normal saline 1,000 ML IV SCH ×3 (03:16→20:17)
[2022-02-14 06:06] LABS: ALBUMIN 2.3 G/DL (3.4-5.0); ANION GAP 6 (8-16); BLOOD UREA NITROGEN 9 MG/DL (7-18); BUN/CREATININE RATIO 14.1 (6.6-38.0); CALCIUM 8.7 MG/DL (8.5-10.1); CHLORIDE 109 MMOL/L (99-107); CREATININE 0.64 MG/DL (0.40-0.90); GLUCOSE 118 MG/DL (70-104); POTASSIUM 3.8 MMOL/L (3.5-5.1); SODIUM 141 MMOL/L (135-145); eGFR > 90 ML/MIN
[2022-02-14 06:09] LABS: BASOPHILS % (AUTO) 0.3 % (0-1); EOSINOPHILS # (AUTO) 0.2 X10'3 (0-0.9); EOSINOPHILS % (AUTO) 2.4 % (0-6); HEMATOCRIT 24.9 % (35.0-45.0); HEMOGLOBIN 8.2 g/dl (12.0-16.0); LYMPHOCYTES % (AUTO) 19.1 % (21-51); MEAN CORPUSCULAR HEMOGLOBIN 28.2 PG (27.0-31.0); MEAN CORPUSCULAR VOLUME 85.3 FL (78-98); MEAN PLATELET VOLUME 7.1 FL (7.4-10.4); MONOCYTES # (AUTO) 0.9 X10'3 (0-0.9); NEUTROPHILS # (AUTO) 7.2 X10'3 (1.8-7.7); NEUTROPHILS % (AUTO) 69.2 % (42-75); PLATELET COUNT 370 X10'3 (140-440); RED BLOOD COUNT 2.92 X10'6 (4.20-5.60); RED CELL DISTRIBUTION WIDTH 16.8 % (11.5-14.5); WHITE BLOOD COUNT 10.4 X10'3 (4.5-11.0)
--- NOTE | 2022-02-14 06:31 | NUR ---
Patient in room MARY 346. I have received report from John WELCH and had the opportunity to ask questions and assume patient care.
--- NOTE | 2022-02-14 06:42 | NUR ---
Report given to REBEKAH Castillo, for continuation of care. Patient going to surgery, all pre-op protocol in place.
[2022-02-14] MEDS ORDERED: BUPIVAcaine 0.5% inj/PF 30 ML ONE ×2 (06:44→07:06)
[2022-02-14] MEDS ORDERED: LIDOcaine 1% (10mg/ml)w/preservative inj. 20ml MDV ONE (06:44)
--- NOTE | 2022-02-14 07:03 | NUR ---
Problems reprioritized. Patient report given, questions answered & plan of care reviewed with RN in Recovery room.
[2022-02-14] MEDS ORDERED: BUPIVACAINE liposomal/PF 13.3 MG/ML vial IM ONE (07:06)
[2022-02-14] MEDS ORDERED: FENTANYL CITRATE/PF 50 MCG/1 ML VIAL ONE ×2 (07:25→08:18)
[2022-02-14] MEDS ORDERED: LIDOcaine 2% (20mg/ml) 5ml vial ONE (07:26)
[2022-02-14] MEDS ORDERED: rocuronium 10mg/ml inj IV ONE ×2 (07:26→07:30)
[2022-02-14] MEDS ORDERED: propofol inj 20 ML IV ONE (07:26)
[2022-02-14] MEDS ORDERED: midazolam 1 mg/ML 2ml injection ONE (07:26)
[2022-02-14] MEDS ORDERED: ePHEDrine 50MG/ML INJ. ONE (07:30)
[2022-02-14] MEDS ORDERED: sevoflurane 250ml liquid IH ONE (07:30)
[2022-02-14] MEDS ORDERED: meperidine/PF 25mg/ml syringe IV PRN ×2 (08:00)
[2022-02-14] MEDS: fluticasone nasal spray 16GM bottle NS SCH (08:00)
[2022-02-14] MEDS: piperacillin/tazo 3.375gm/50ml 50 ML IV SCH ×3 (08:00→23:18)
[2022-02-14] MEDS ORDERED: morphine 4 MG/ML inj SYRINge IV PRN (08:00)
[2022-02-14] MEDS ORDERED: ondansetron/PF 4mg/2ml inj IV PRN (08:00)
[2022-02-14] MEDS ORDERED: morphine 2 MG/ML inj. syringe IV PRN (08:00)
[2022-02-14] MEDS ORDERED: ringers solution, lacted 1,000 ML IV SCH (08:00)
[2022-02-14] MEDS ORDERED: proCHLORperazine 10 MG/2 ml inj IV PRN (08:00)
[2022-02-14] MEDS ORDERED: neostigmine methylsulfate 1 MG/ML 10ml vial ONE (08:24)
[2022-02-14] MEDS ORDERED: dexamethasone sod phosphate 4mg/ml inj. ONE (08:24)
[2022-02-14] MEDS ORDERED: glycopyrrolate 0.2mg/ml inj ONE (08:24)
[2022-02-14] MEDS ORDERED: ondansetron/PF 4mg/2ml inj ONE (08:24)
[2022-02-14] MEDS ORDERED: sugammadex 200mg/2ml injection IV ONE (09:25)
--- NOTE | 2022-02-14 09:26 | NUR ---
Received from OR via , accompanied by Anesthesiologist DR EDMONDSON and report given by Anesthesiolgist. AWAKENS TO VOICE. VITALS STABLE. DRESSINGS DI. KATIE PAIN. ABD SOFT.
[2022-02-14] MEDS ORDERED: oxyCODONE/APAP 5-325mg tablet PO PRN (09:35)
[2022-02-14] MEDS ORDERED: ipratropium/albuterol 3ml nebule NEB PRN (09:45)
[2022-02-14] MEDS ORDERED: ipratropium/albuterol 3ml nebule ONE (09:50)
[2022-02-14] MEDS: meperidine/PF 25mg/ml syringe IV PRN ×2 (10:10→14:35)
--- NOTE | 2022-02-14 10:26 | NUR ---
Report called to receiving nurse. Transferred via BED Belongings . Special Issues communicated to receiving nurse.AWAKE AND ORIENTED. VITALS STABLE. DRESSINGS DI. STATES PAIN IMPROVING. TO SURGICAL RM 346B AT THIS TIME.
[2022-02-14] MEDS: duloxetine 30mg CAPSULE.DR PO SCH ×2 (11:52→14:00)
[2022-02-14] MEDS: docusate sod 100mg capsule PO SCH ×2 (11:52→20:01)
[2022-02-14] MEDS: loratadine 10mg tablet PO SCH (11:52)
[2022-02-14] MEDS: citalopram 20mg tablet PO SCH (11:52)
[2022-02-14] MEDS: topiramate 25mg tablet PO SCH ×2 (11:53→20:01)
[2022-02-14] MEDS: ferrous sulfate 325mg tablet PO SCH ×3 (11:53→20:01)
[2022-02-14] MEDS: OLANZapine 2.5MG tablet PO SCH (11:53)
--- NOTE | 2022-02-14 16:56 | NUR ---
Message: Marya West#[id number]- Pt has D5-1/2NS at 100ml/hr. Can we change fluids or saline lock her? She is on full diet and will be regular at breakfast. DC tomorrow. thank you. Anna Aguilera [phone]
--- NOTE | 2022-02-14 18:25 | NUR ---
Problems reprioritized. Patient report given, questions answered & plan of care reviewed with graham Dwyer Traveler.
[2022-02-14] MEDS: prazosin 1mg capsule PO SCH (20:00)
[2022-02-14] MEDS: QUEtiapine 25mg tablet PO SCH (20:01)
[2022-02-14] MEDS: propranolol 10mg tablet PO SCH (20:02)
[2022-02-14] MEDS: oxyCODONE/APAP 10/325mg tablet PO PRN (20:03)
[2022-02-15] MEDS: dextrose 5%-1/2 normal saline 1,000 ML IV SCH (02:00)
[2022-02-15] MEDS: oxyCODONE/APAP 10/325mg tablet PO PRN ×2 (02:52→12:14)
--- NOTE | 2022-02-15 04:54 | NUR ---
Report given to Mayela Lock RN Charge Nurse for continuation of care. Patient remains in stable condition, sleeping comfortably in the bed.
--- NOTE | 2022-02-15 07:03 | NUR ---
I did not received report from the night nurse since He left early and no one took over his pts. No updates. (oJhn WELCH Traveler)
[2022-02-15 07:08] LABS: BASOPHILS % (AUTO) 0.4 % (0-1); EOSINOPHILS # (AUTO) 0.4 X10'3 (0-0.9); EOSINOPHILS % (AUTO) 3.6 % (0-6); HEMATOCRIT 22.7 % (35.0-45.0); HEMOGLOBIN 7.4 g/dl (12.0-16.0); LYMPHOCYTES % (AUTO) 17.2 % (21-51); MEAN CORPUSCULAR HEMOGLOBIN 28.1 PG (27.0-31.0); MEAN CORPUSCULAR HGB CONC 32.6 g/dL (33.0-36.5); MEAN CORPUSCULAR VOLUME 86.2 FL (78-98); MEAN PLATELET VOLUME 7.3 FL (7.4-10.4); MONOCYTES # (AUTO) 0.9 X10'3 (0-0.9); MONOCYTES % (AUTO) 7.9 % (2-12); NEUTROPHILS # (AUTO) 8.1 X10'3 (1.8-7.7); NEUTROPHILS % (AUTO) 70.9 % (42-75); PLATELET COUNT 371 X10'3 (140-440); RED BLOOD COUNT 2.63 X10'6 (4.20-5.60); WHITE BLOOD COUNT 11.5 X10'3 (4.5-11.0)
[2022-02-15 07:50] LABS: ALBUMIN 2.4 G/DL (3.4-5.0); ANION GAP 9 (8-16); BLOOD UREA NITROGEN 9 MG/DL (7-18); BUN/CREATININE RATIO 11.8 (6.6-38.0); CALCIUM 8.9 MG/DL (8.5-10.1); CHLORIDE 104 MMOL/L (99-107); CREATININE 0.76 MG/DL (0.40-0.90); GLUCOSE 98 MG/DL (70-104); POTASSIUM 3.5 MMOL/L (3.5-5.1); SODIUM 139 MMOL/L (135-145); TOTAL CARBON DIOXIDE 26.3 MMOL/L (24-32); eGFR 81 ML/MIN
[2022-02-15 08:00] VITALS: BP 109/65
[2022-02-15] MEDS: piperacillin/tazo 3.375gm/50ml 50 ML IV SCH (08:01)
[2022-02-15] MEDS: ferrous sulfate 325mg tablet PO SCH (08:01)
[2022-02-15] MEDS: duloxetine 30mg CAPSULE.DR PO SCH ×2 (08:02→12:13)
[2022-02-15] MEDS: citalopram 20mg tablet PO SCH (08:02)
[2022-02-15] MEDS: docusate sod 100mg capsule PO SCH (08:02)
[2022-02-15] MEDS: topiramate 25mg tablet PO SCH (08:02)
[2022-02-15] MEDS: OLANZapine 2.5MG tablet PO SCH (08:02)
[2022-02-15] MEDS: loratadine 10mg tablet PO SCH (08:03)
[2022-02-15 11:00] VITALS: BP 106/68
[2022-02-15] MEDS: fluticasone nasal spray 16GM bottle NS SCH (12:14)
--- NOTE | 2022-02-15 13:57 | NUR ---
PAGER ID: [phone] MESSAGE: Marya West#[id number]- Pt needs a NOTE to take to the [place]homeless that says she cannot lift, bed rest for at least two day.current room is up many stairs and she is painful. I can write it for you, I just need approval. Anna Aguilera [phone]
--- NOTE | 2022-02-15 15:00 | NUR ---
Pt DC to [facility]. Pt A & O x4 and in no apparent distress. Pt packed her belongings and was wheeled to the front where taxi took her to [facility]. Addendum: 02/15/22 at 1619 by Anna Rodriguez RN medications from home were left behind, taken back to pharmacy.
== END 2022-02-15 15:03 | disposition home or self-care (01) | DRG 227 ==
LOC: ER 21:00 → ED HOLD 02-13 00:01 → SUR 3N 02-13 01:55
PROVIDERS: ADMIT Internal Medicine; ATTEND Family Medicine
PROC: 0D9670Z Drainage of Stomach with Drainage Device, Via Natural or Artificial Opening (ICD-10-PCS; 2022-02-12)
PROC: 8E0W4CZ Robotic Assisted Procedure of Trunk Region, Percutaneous Endoscopic Approach (ICD-10-PCS; 2022-02-14)
PROC: 0WUF4JZ Supplement Abdominal Wall with Synthetic Substitute, Percutaneous Endoscopic Approach (ICD-10-PCS; principal; 2022-02-14 07:30)
DX: K43.6 Other and unspecified ventral hernia with obstruction, without gangrene (principal); D64.9 Anemia, unspecified; Z20.822 Contact with and (suspected) exposure to COVID-19; F12.90 Cannabis use, unspecified, uncomplicated; R23.3 Spontaneous ecchymoses; F31.9 Bipolar disorder, unspecified; E66.9 Obesity, unspecified; F41.0 Panic disorder [episodic paroxysmal anxiety]; F43.10 Post-traumatic stress disorder, unspecified; Z80.7 Family history of other malignant neoplasms of lymphoid, hematopoietic and related tissues; Z82.49 Family history of ischemic heart disease and other diseases of the circulatory system; Z82.5 Family history of asthma and other chronic lower respiratory diseases; Z88.5 Allergy status to narcotic agent; Z79.899 Other long term (current) drug therapy; Z56.0 Unemployment, unspecified; Z68.39 Body mass index [BMI] 39.0-39.9, adult
CPT/HCPCS: 36415; 71045; 74176; 80048; 80053; 82948; 83605; 83690; 83880; 84145; 85025; 85730; 87040; 87081; 87635; 93005; 94640; 94760; 96361; 96365; 96372; 96375; 99285; A4215; A4618; C1758; C1781; C9290; G0378; J1100; J1170; J1630; J2060; J2175; J2250; J2405; J2543; J2704; J2710; J3010; J3490; J7030; J7042; J7120; S0020

== ENCOUNTER 2022-03-01 07:12 | Emergency (ER) | payer MEDICAID ==
[~2022-03-01] VITALS: Ht 167.6 cm; Wt 115.4 kg
[~2022-03-01 07:12] MED LIST changes: +CITA40TA16 PO; +CLON1TAB13 PO; +ESZO3TAB40 PO; +PRAZ1CAP5 PO; +QUET25TA36 PO; +TOPI25TA49 PO
[2022-03-01 07:40] VITALS: BP 159/90
== END 2022-03-01 10:39 | disposition left against medical advice (07) ==
LOC: ER 07:13
DX: R50.9 Fever, unspecified (principal); R51.9 Headache, unspecified; R06.02 Shortness of breath; Z53.21 Procedure and treatment not carried out due to patient leaving prior to being seen by health care provider
CPT/HCPCS: 71045

== ENCOUNTER 2022-11-05 16:42 | Emergency (ER) | payer MEDICAID ==
[~2022-11-05] VITALS: Ht 170.2 cm; Wt 131.0 kg
[2022-11-05 21:28] LABS: BASOPHILS # (AUTO) 0.1 X10'3 (0-0.2); BASOPHILS % (AUTO) 0.5 % (0-1); EOSINOPHILS # (AUTO) 0.2 X10'3 (0-0.9); EOSINOPHILS % (AUTO) 1.7 % (0-6); HEMATOCRIT 37.5 % (35.0-45.0); HEMOGLOBIN 12.2 g/dl (12.0-16.0); LYMPHOCYTES # (AUTO) 2.2 X10'3 (1.1-4.8); LYMPHOCYTES % (AUTO) 22.5 % (21-51); MEAN CORPUSCULAR HGB CONC 32.6 g/dL (33.0-36.5); MEAN CORPUSCULAR VOLUME 92.1 FL (78-98); MEAN PLATELET VOLUME 7.3 FL (7.4-10.4); MONOCYTES # (AUTO) 0.5 X10'3 (0-0.9); MONOCYTES % (AUTO) 5.5 % (2-12); NEUTROPHILS # (AUTO) 6.9 X10'3 (1.8-7.7); NEUTROPHILS % (AUTO) 69.8 % (42-75); PLATELET COUNT 417 X10'3 (140-440); RED BLOOD COUNT 4.07 X10'6 (4.20-5.60); RED CELL DISTRIBUTION WIDTH 13.5 % (11.5-14.5); WHITE BLOOD COUNT 9.9 X10'3 (4.5-11.0)
[2022-11-05 21:49] LABS: ALANINE AMINOTRANSFERASE 38 U/L (12-78); ALBUMIN 3.5 G/DL (3.4-5.0); ALBUMIN/GLOBULIN RATIO 0.8 (1.1-1.5); ALKALINE PHOSPHATASE 146 IU/L (46-116); ANION GAP 7 (8-16); ASPARTATE AMINO TRANSFERASE 30 U/L (10-37); BILIRUBIN,TOTAL 0.3 MG/DL (0.1-1.0); BLOOD UREA NITROGEN 8 MG/DL (7-18); BUN/CREATININE RATIO 10.4 (6.6-38.0); CALCIUM 10.3 MG/DL (8.5-10.1); CHLORIDE 103 MMOL/L (99-107); CREATININE 0.77 MG/DL (0.40-0.90); GLUCOSE 105 MG/DL (70-104); POTASSIUM 3.8 MMOL/L (3.5-5.1); SODIUM 139 MMOL/L (135-145); TOTAL CARBON DIOXIDE 28.6 MMOL/L (24-32); eGFR 80 ML/MIN
[2022-11-05] MEDS ORDERED: LORazepam 1 MG tablet PO ONE (23:00)
[2022-11-05] MEDS ORDERED: diphenhydrAMINE 25mg capsule PO ONE (23:00)
[2022-11-05 23:20] LABS: CLARITY,URINE SLIGHTLY CLOUDY (Clear); COLOR,URINE YELLOW (Yellow); GLUCOSE, URINE NEGATIVE (Neg); KETONES,URINE NEGATIVE (Neg); LEUKOCYTE ESTERASE ,URINE SMALL (Neg); NITRITES, URINE NEGATIVE (Neg); OCCULT BLOOD,URINE TRACE-INTACT (Neg); PROTEIN,URINE NEGATIVE (Neg); UROBILINOGEN,URINE 0.2 E.U/dL (0.2-1.0)
[2022-11-05 23:21] LABS: URINE HCG NEGATIVE (NEG)
[2022-11-05 23:27] LABS: UA COLLECTION TYPE NON-SPECIFIED
[2022-11-05 23:31] LABS: BACTERIA,URINE FEW /HPF (Neg); MUCUS STRANDS FEW /LPF (Neg); SQUAMOUS EPITHELIAL CELL,UR MODERATE /LPF (FEW); TRANSITIONAL EPI CELLS,URINE FEW /HPF
[2022-11-05 23:33] LABS: URINE AMPHETAMINE SCREEN NEGATIVE (Neg); URINE BARBITUATE SCREEN NEGATIVE (Neg); URINE BENZODIAZEPINES SCREEN NEGATIVE (Neg); URINE CANNABINOID SCREEN NEGATIVE (Neg); URINE COCAINE SCREEN NEGATIVE (Neg); URINE METHADONE SCREEN NEGATIVE (Neg); URINE OPIATE SCREEN NEGATIVE (Neg); URINE PHENCYCLIDINE SCREEN NEGATIVE (Neg)
[2022-11-06] MEDS ORDERED: acetaminophen 325mg tablet PO ONE (03:50)
--- NOTE | 2022-11-06 03:56 | NUR ---
PO MED GIVEN TOOTH BRUSH AND TOOTH PASTE GIVEN
--- NOTE | 2022-11-06 05:22 | NUR ---
PHARM CALLED TO INQUIRE ABOUT MED REC. RJ STATED HE COULD NOT VERIFY [facility] MED LIST UNTILL 8AM. PT INFORMED
--- NOTE | 2022-11-06 07:02 | NUR ---
Patient is sleeping in bed in hallway. Respirations are even and unlabored.
--- NOTE | 2022-11-06 08:20 | NUR ---
Telephone call placed to patient's pharmacy to see what medications she is taking, as patient cannot remember. [phone].
[2022-11-06] MEDS ORDERED: OLAN1TAB3 PO (09:30)
[2022-11-06] MEDS ORDERED: LITH150C8 PO (09:30)
[2022-11-06] MEDS ORDERED: LAMO25TA5 PO (09:30)
[2022-11-06] MEDS ORDERED: FURO-150 PO (09:30)
[2022-11-06] MEDS ORDERED: PROP40TA72 PO (09:30)
[2022-11-06] MEDS: clonazePAM 1mg tablet PO PRN ×2 (11:04→18:57)
--- NOTE | 2022-11-06 12:34 | NUR ---
Patient is crying out that her kids would be better off without her. She is waiting to be evaluated by [facility]. Patient believes there are people trying to get to her. Reassured patient of safety on unit.
--- NOTE | 2022-11-06 19:47 | NUR ---
Assumed care of patient. Patient laying quietly in bed upon assessment. Patient reports change in provider and medication regimine. Patient states that she believes when the provider changed her depression medication to a higher dose she will be better soon. Patient ate 100% dinner. Patient c/o anxiety pt received 1mg Klonopin with good results will continue to monitor.
[2022-11-06] MEDS: prazosin 1mg capsule PO SCH (20:35)
[2022-11-06] MEDS: lamoTRIgine 100mg tablet PO SCH (20:36)
[2022-11-06] MEDS: propranolol 40mg tablet PO SCH (20:55)
[2022-11-06] MEDS: fluticasone nasal spray 16GM bottle NS SCH (20:56)
[2022-11-06] MEDS ORDERED: OLANZAPINE PO SCH (21:00)
[2022-11-06] MEDS ORDERED: lithium carbonate 150mg capsule PO SCH (21:00)
[2022-11-06] MEDS ORDERED: SAMIDORPHAN MALATE PO SCH (21:00)
[2022-11-06] MEDS ORDERED: OLANZapine 2.5MG tablet PO SCH (21:45)
[2022-11-06] MEDS: olanzapine 10mg tablet PO SCH (21:57)
--- NOTE | 2022-11-06 22:36 | NUR ---
Patient own medication not available through pharmacy, provider oredered Zyprexa 10mg in replacement of old medication. Patient layingh in bed with light off watching TV after recent snack.
--- NOTE | 2022-11-07 00:50 | NUR ---
Patient appears to be sleeping at this time.
[2022-11-07] MEDS ORDERED: acetaminophen 325mg tablet PO ONE (00:55)
--- NOTE | 2022-11-07 00:56 | NUR ---
Patient woke up c/o headache. Provider ordered Tylenol 650mg.
--- NOTE | 2022-11-07 01:57 | NUR ---
Patient appears to be sleeping at this time.
--- NOTE | 2022-11-07 03:29 | NUR ---
Patient appears to be sleeping at this time.
--- NOTE | 2022-11-07 05:00 | NUR ---
The patient appears to be sleeping a this time.
--- NOTE | 2022-11-07 06:43 | NUR ---
[facility] SENT PT PACKET TO [facility]
--- NOTE | 2022-11-07 07:00 | NUR ---
Assumed care of patient that is sleeping.
[2022-11-07] MEDS ORDERED: furosemide 20MG tablet PO SCH (08:00)
[2022-11-07] MEDS ORDERED: loratadine 10mg tablet PO SCH (08:00)
[2022-11-07] MEDS: propranolol 40mg tablet PO SCH (08:21)
[2022-11-07] MEDS: fluticasone nasal spray 16GM bottle NS SCH (08:22)
[2022-11-07] MEDS: clonazePAM 1mg tablet PO PRN ×2 (08:24→15:46)
--- NOTE | 2022-11-07 09:25 | NUR ---
Patient talking to [facility] nurse.
--- NOTE | 2022-11-07 10:43 | NUR ---
Patient appears to be sleeping
--- NOTE | 2022-11-07 11:14 | NUR ---
Patient on the phone with her pharmacy.
--- NOTE | 2022-11-07 11:42 | NUR ---
Patient being placed on 5150 hold. Placement to be seeked.
--- NOTE | 2022-11-07 12:09 | NUR ---
Patient sitting on her bed eating lunch. Denies needs.
--- NOTE | 2022-11-07 13:14 | NUR ---
[facility] They will call back if accepting patient.
--- NOTE | 2022-11-07 13:36 | NUR ---
Patient accepted to [facility]. No ETA at this time.
--- NOTE | 2022-11-07 16:15 | NUR ---
Received call from [place] office. Patient to be picked up between 1944 and 1999.
--- NOTE | 2022-11-07 16:29 | NUR ---
pt crying on phone with [place] Sarah stating "I might as well kill myself. Slit my wrists and kill myself. Nobody cares about me." [facility] clinician informed. pt continues to cry and talk on the phone.
--- NOTE | 2022-11-07 17:00 | NUR ---
Patient resting after multiple calls to her pharmacy.
--- NOTE | 2022-11-07 18:44 | NUR ---
Received patient from Mode WELCH. Patient initially upset about transfer to [facility] at 20:00. Patient rceived dinner and was able to calm down. Patient now sitting at edge of bed quietly.
[2022-11-07] MEDS: lamoTRIgine 100mg tablet PO SCH (19:44)
[2022-11-07] MEDS: prazosin 1mg capsule PO SCH (19:44)
[2022-11-07] MEDS: olanzapine 10mg tablet PO SCH (19:44)
--- NOTE | 2022-11-07 20:14 | NUR ---
[facility] came and took patient to [facility]. patient took evening meds w/o complications and was cooperative.
[2022-11-07 20:23] VITALS: BP 142/81
== END 2022-11-07 20:27 ==
LOC: ER 16:43
DX: R45.851 Suicidal ideations (principal); Z20.822 Contact with and (suspected) exposure to COVID-19; J45.909 Unspecified asthma, uncomplicated; F31.9 Bipolar disorder, unspecified; F12.90 Cannabis use, unspecified, uncomplicated; Z88.5 Allergy status to narcotic agent
CPT/HCPCS: 36415; 80053; 80305; 81001; 81025; 84443; 85025; 87088; 87811; 99285; Q0163

== ENCOUNTER 2022-11-24 23:41 | Emergency (ER) | payer MEDICAID ==
[~2022-11-24] VITALS: Ht 167.6 cm; Wt 131.4 kg
[~2022-11-24 23:41] MED LIST changes: -CITA40TA16 PO; -DULO30CA52 PO; -DULO60CA65 PO; -ESZO3TAB40 PO; -FERR325T29 PO; +FURO-150 PO; +LAMO25TA5 PO; +LITH150C8 PO; +OLAN1TAB3 PO; -OLAN7.5T18 PO; +PROP40TA72 PO; -PROP60TA19 PO; -QUET25TA36 PO; -TOPI25TA49 PO
--- NOTE | 2022-11-25 00:39 | NUR ---
POISON CONTROL CONTACTED. PER POISON CONTROL 6 HRS OBSERVATION. OBSERVE FOR EKG CHANGES, SEIZURE ACTIVITY, AND ORTHOSTATIC HYPERTENSION. FULL LAB PANEL TO BE DONE.
[2022-11-25 01:50] LABS: BASOPHILS % (AUTO) 0.4 % (0-1); EOSINOPHILS # (AUTO) 0.1 X10'3 (0-0.9); EOSINOPHILS % (AUTO) 1.4 % (0-6); HEMATOCRIT 34.8 % (35.0-45.0); LYMPHOCYTES # (AUTO) 1.8 X10'3 (1.1-4.8); LYMPHOCYTES % (AUTO) 16.8 % (21-51); MEAN CORPUSCULAR HEMOGLOBIN 30.9 PG (27.0-31.0); MEAN CORPUSCULAR HGB CONC 34.4 g/dL (33.0-36.5); MEAN CORPUSCULAR VOLUME 89.8 FL (78-98); MEAN PLATELET VOLUME 7.8 FL (7.4-10.4); MONOCYTES # (AUTO) 0.5 X10'3 (0-0.9); MONOCYTES % (AUTO) 4.4 % (2-12); NEUTROPHILS # (AUTO) 8.2 X10'3 (1.8-7.7); PLATELET COUNT 371 X10'3 (140-440); RED BLOOD COUNT 3.88 X10'6 (4.20-5.60); RED CELL DISTRIBUTION WIDTH 13.1 % (11.5-14.5); WHITE BLOOD COUNT 10.6 X10'3 (4.5-11.0)
[2022-11-25 01:57] LABS: ALANINE AMINOTRANSFERASE 28 U/L (12-78); ALBUMIN 3.6 G/DL (3.4-5.0); ALBUMIN/GLOBULIN RATIO 0.9 (1.1-1.5); ALKALINE PHOSPHATASE 126 IU/L (46-116); ANION GAP 9 (8-16); ASPARTATE AMINO TRANSFERASE 18 U/L (10-37); BILIRUBIN,TOTAL 0.3 MG/DL (0.1-1.0); BLOOD UREA NITROGEN 7 MG/DL (7-18); BUN/CREATININE RATIO 8.1 (6.6-38.0); CHLORIDE 102 MMOL/L (99-107); CREATININE 0.86 MG/DL (0.40-0.90); ETHANOL < 0.010 GM/DL (0.0-0.010); GLUCOSE 136 MG/DL (70-104); POTASSIUM 3.9 MMOL/L (3.5-5.1); SODIUM 138 MMOL/L (135-145); TOTAL PROTEIN 7.7 G/DL (6.4-8.2); eGFR 70 ML/MIN
[2022-11-25 01:58] LABS: ACETAMINOPHEN < 2.0 UG/ML (10-30)
[2022-11-25 02:02] LABS: URINE HCG NEGATIVE (NEG)
--- NOTE | 2022-11-25 02:06 | NUR ---
General assessment reviewed
[2022-11-25 02:11] LABS: URINE AMPHETAMINE SCREEN NEGATIVE (Neg); URINE BARBITUATE SCREEN NEGATIVE (Neg); URINE BENZODIAZEPINES SCREEN NEGATIVE (Neg); URINE CANNABINOID SCREEN NEGATIVE (Neg); URINE COCAINE SCREEN NEGATIVE (Neg); URINE METHADONE SCREEN NEGATIVE (Neg); URINE OPIATE SCREEN NEGATIVE (Neg); URINE PHENCYCLIDINE SCREEN NEGATIVE (Neg)
--- NOTE | 2022-11-25 02:49 | NUR ---
MED REC. GIVEN TO DR. GONCALVES TO REVIEW.
--- NOTE | 2022-11-25 03:13 | NUR ---
ASSUMED CARE FROM KENYATTA CARRILLO.
--- NOTE | 2022-11-25 06:42 | NUR ---
PT IS SLEEPING IN ROOM, SAFE AND NOT DISTRESS NOTED AT THIS TIME.
--- NOTE | 2022-11-25 07:49 | NUR ---
LN took report from REBEAKH Mcclelland, pt katina.
[2022-11-25] MEDS: propranolol 40mg tablet PO SCH ×2 (08:00→20:00)
[2022-11-25] MEDS: furosemide 20MG tablet PO SCH (08:00)
--- NOTE | 2022-11-25 08:14 | NUR ---
LN received report from REBEKAH Mcclelland at approx 0720 today, pt stable. Pharmacy contacted re: propanolol 80mg no in omnicell, awaiting delivery for 0800 dose.
--- NOTE | 2022-11-25 08:19 | NUR ---
Pt is awake and eating breakfast. No c/o pain or discomfort att.
--- NOTE | 2022-11-25 10:22 | NUR ---
Pt called neighbor to take care of pet, alleviated pt anxiety. Pt calm and cooperative with staff. Pt resting well att.
--- NOTE | 2022-11-25 12:23 | NUR ---
Pt is awake and sitting up in bed. Pt previously ambulated to restroom. Pt is eating lunch well. No complaints att.
--- NOTE | 2022-11-25 14:23 | NUR ---
Pt resting comfortably att. Pt cooperative with all care.
--- NOTE | 2022-11-25 14:47 | NUR ---
MANAS moffett completed, hold in place.
--- NOTE | 2022-11-25 16:04 | NUR ---
Pt continues to be cooperative with all care. Pt is resting comfortably att.
[2022-11-25] MEDS: clonazePAM 1mg tablet PO PRN ×2 (16:49→21:40)
--- NOTE | 2022-11-25 16:50 | NUR ---
Pt requested clonazepam r/t anxiety from nearby patient yelling continuously. Medication given.
--- NOTE | 2022-11-25 17:32 | NUR ---
LN received order to obtain nasal swab to test for RSV. Test completed and brought to lab.
[2022-11-25] MEDS ORDERED: SAMIDORPHAN MALATE PO SCH (21:00)
[2022-11-25] MEDS ORDERED: prazosin 1mg capsule PO SCH (21:00)
[2022-11-25] MEDS ORDERED: lamoTRIgine 100mg tablet PO SCH (21:00)
[2022-11-25] MEDS ORDERED: OLANZAPINE PO SCH (21:00)
--- NOTE | 2022-11-25 21:10 | NUR ---
home med not available. med not in [facility]. pt informed
--- NOTE | 2022-11-25 21:22 | NUR ---
GENERAL ASSESSMENT REVIEWED
--- NOTE | 2022-11-25 21:40 | NUR ---
pt requested her nightmare medication. meds not available. prn med given
--- NOTE | 2022-11-26 02:36 | NUR ---
rsv result faxed @ [phone] 11-26-22 for placement in the A.M per Charline OJEDA
--- NOTE | 2022-11-26 06:10 | NUR ---
Pt sleeping supine; in no apparent distress. Will continue to follow.
[2022-11-26 08:05] VITALS: BP 123/72
[2022-11-26] MEDS: furosemide 20MG tablet PO SCH (08:16)
[2022-11-26] MEDS: propranolol 40mg tablet PO SCH (08:17)
[2022-11-26] MEDS: clonazePAM 1mg tablet PO PRN (08:46)
== END 2022-11-26 08:55 ==
LOC: ER 23:41
DX: R45.851 Suicidal ideations (principal); Z20.822 Contact with and (suspected) exposure to COVID-19; I10 Essential (primary) hypertension; J45.909 Unspecified asthma, uncomplicated; F41.9 Anxiety disorder, unspecified; F12.90 Cannabis use, unspecified, uncomplicated; F31.9 Bipolar disorder, unspecified; Z98.890 Other specified postprocedural states; Z88.5 Allergy status to narcotic agent; Z79.899 Other long term (current) drug therapy
CPT/HCPCS: 36415; 80053; 80178; 80305; 80320; 80329; 81025; 82542; 85025; 87635; 93005; 99285; C9803

== ENCOUNTER 2022-12-04 19:14 | Inpatient (IN) | payer MEDICAID ==
[~2022-12-04] VITALS: Ht 167.6 cm; Wt 133.0 kg
[~2022-12-04 19:14] MED LIST changes: -FLUT15.845 NS; -LITH150C8 PO; -LORA10TA7 PO
[2022-12-04 19:36] LABS: BASOPHILS % (AUTO) 0.4 % (0-1); EOSINOPHILS # (AUTO) 0.2 X10'3 (0-0.9); EOSINOPHILS % (AUTO) 1.9 % (0-6); HEMATOCRIT 37.1 % (35.0-45.0); HEMOGLOBIN 12.4 g/dl (12.0-16.0); LYMPHOCYTES % (AUTO) 18.7 % (21-51); MEAN CORPUSCULAR HEMOGLOBIN 29.6 PG (27.0-31.0); MEAN CORPUSCULAR HGB CONC 33.6 g/dL (33.0-36.5); MEAN CORPUSCULAR VOLUME 88.2 FL (78-98); MEAN PLATELET VOLUME 7.4 FL (7.4-10.4); MONOCYTES # (AUTO) 0.7 X10'3 (0-0.9); MONOCYTES % (AUTO) 6.7 % (2-12); NEUTROPHILS # (AUTO) 7.7 X10'3 (1.8-7.7); NEUTROPHILS % (AUTO) 72.3 % (42-75); PLATELET COUNT 420 X10'3 (140-440); RED CELL DISTRIBUTION WIDTH 13.1 % (11.5-14.5); WHITE BLOOD COUNT 10.6 X10'3 (4.5-11.0)
[2022-12-04 19:42] LABS: URINE HCG NEGATIVE (NEG)
[2022-12-04 19:45] LABS: CLARITY,URINE SLIGHTLY CLOUDY (Clear); COLOR,URINE YELLOW (Yellow); GLUCOSE, URINE NEGATIVE (Neg); KETONES,URINE NEGATIVE (Neg); LEUKOCYTE ESTERASE ,URINE SMALL (Neg); NITRITES, URINE NEGATIVE (Neg); OCCULT BLOOD,URINE NEGATIVE (Neg); PROTEIN,URINE NEGATIVE (Neg); UROBILINOGEN,URINE 0.2 E.U/dL (0.2-1.0)
[2022-12-04 19:48] LABS: UA COLLECTION TYPE CLN CATCH MIDSTREAM
[2022-12-04 19:50] LABS: BACTERIA,URINE 2+ /HPF (Neg); SQUAMOUS EPITHELIAL CELL,UR MANY /LPF (FEW)
[2022-12-04 19:51] LABS: ALANINE AMINOTRANSFERASE 28 U/L (12-78); ALBUMIN 3.7 G/DL (3.4-5.0); ALBUMIN/GLOBULIN RATIO 0.8 (1.1-1.5); ALKALINE PHOSPHATASE 129 IU/L (46-116); ANION GAP 6 (8-16); ASPARTATE AMINO TRANSFERASE 16 U/L (10-37); BILIRUBIN,TOTAL 0.3 MG/DL (0.1-1.0); BLOOD UREA NITROGEN 14 MG/DL (7-18); BUN/CREATININE RATIO 18.9 (6.6-38.0); CALCIUM 9.9 MG/DL (8.5-10.1); CHLORIDE 101 MMOL/L (99-107); CREATININE 0.74 MG/DL (0.40-0.90); GLUCOSE 119 MG/DL (70-104); POTASSIUM 3.5 MMOL/L (3.5-5.1); SODIUM 135 MMOL/L (135-145); TOTAL PROTEIN 8.1 G/DL (6.4-8.2); eGFR 83 ML/MIN
[2022-12-04 19:51] LABS: TRANSITIONAL EPI CELLS,URINE FEW /HPF
[2022-12-04 19:55] LABS: ETHANOL < 0.010 GM/DL (0.0-0.010)
[2022-12-04] MEDS ORDERED: quetiapine 100mg tablet PO STA (20:02)
[2022-12-04] MEDS ORDERED: OLANZapine 2.5MG tablet PO STA (20:02)
[2022-12-04 20:03] LABS: URINE AMPHETAMINE SCREEN NEGATIVE (Neg); URINE BARBITUATE SCREEN NEGATIVE (Neg); URINE BENZODIAZEPINES SCREEN NEGATIVE (Neg); URINE CANNABINOID SCREEN NEGATIVE (Neg); URINE COCAINE SCREEN NEGATIVE (Neg); URINE METHADONE SCREEN NEGATIVE (Neg); URINE OPIATE SCREEN NEGATIVE (Neg); URINE PHENCYCLIDINE SCREEN NEGATIVE (Neg)
--- NOTE | 2022-12-04 21:00 | NUR ---
The patient to bed 24 from the main ER. She was cooperative with the move. She was unable to give an accurate medication list. Contacted [facility] office and they will fax her discharge instructions from [facility]. Earlier today she was discharged but stated she believes that she was discharged too soon. She reports she is suicidal to overdose on RX medications. She reports PI that she is being followed. She states she is hearing voices to harm herself. She was given medications as ordered. She was offered a meal but she declined.
[2022-12-04] MEDS ORDERED: POTA20PA40 PO (21:48)
[2022-12-04] MEDS ORDERED: HYDR-3686 PO (21:48)
[2022-12-04] MEDS ORDERED: CLON0.252 PO (21:48)
[2022-12-04] MEDS ORDERED: GABA300C PO (21:48)
[2022-12-04] MEDS ORDERED: PRAZ1CAP5 PO (21:48)
[2022-12-04] MEDS ORDERED: ARIP10TA14 PO (21:48)
[2022-12-04] MEDS ORDERED: TRAZ-251 PO (21:48)
[2022-12-04] MEDS ORDERED: FURO-150 PO (21:48)
[2022-12-04] MEDS ORDERED: PROP40TA72 PO (21:50)
--- NOTE | 2022-12-04 23:00 | NUR ---
PACKET SENT TO [facility]
--- NOTE | 2022-12-04 23:19 | NUR ---
The patient appears to be sleeping
--- NOTE | 2022-12-05 01:20 | NUR ---
The patient appears to be sleeping
[2022-12-05] MEDS ORDERED: LORazepam 1 MG tablet PO STA (02:54)
--- NOTE | 2022-12-05 03:04 | NUR ---
The patient awake and feeling very anxious. She appears distressed. She stated that she still feels like taking her life. She currently is directly in front of the nursing station. Discussed patient with Dr. Mckeon and orders received.
[2022-12-05] MEDS ORDERED: traZODone 50mg tablet PO PRN (03:05)
--- NOTE | 2022-12-05 04:28 | NUR ---
The patient is resting on her bed
--- NOTE | 2022-12-05 05:12 | NUR ---
The patient appears to be sleeping
--- NOTE | 2022-12-05 06:30 | NUR ---
Patient is sleeping in supine position. No s/sx of distress.
--- NOTE | 2022-12-05 07:45 | NUR ---
Patient is awake waiting for breakfast. She reports that she wants to kill herself. She states that she never feels any rashaun anymore, and she feels hopeless enough to commit suicide.
[2022-12-05] MEDS: furosemide 20MG tablet PO SCH (09:19)
[2022-12-05] MEDS: ARIPIPRAZOLE 10 MG TABLET PO SCH (09:19)
[2022-12-05] MEDS: propranolol 40mg tablet PO SCH ×2 (09:19→20:19)
[2022-12-05] MEDS: potassium Cl 20 mEq SR tablet PO SCH (09:20)
[2022-12-05] MEDS: gabapentin 300mg capsule PO SCH ×3 (09:20→20:19)
[2022-12-05] MEDS: hydrOXYzine 25 MG tablet PO PRN ×2 (09:26→16:18)
--- NOTE | 2022-12-05 09:45 | NUR ---
Patient is lying awake in bed. She is tearful at times.
--- NOTE | 2022-12-05 12:54 | NUR ---
Patient to be accepted to [facility].
--- NOTE | 2022-12-05 15:08 | NUR ---
REBEKAH Mcgrath from [facility] is here to take patient upstairs. Security is accompanying.
[2022-12-05 15:10] VITALS: BP 130/88
--- NOTE | 2022-12-05 15:10 | NUR ---
PT BELONGINGS RETREIVED FROM [facility] GAVE PT ONE BAG OF BELONGINGS TO [facility] RN, NO VALUABLES PLACED IN SAFE.
[2022-12-05] MEDS ORDERED: acetaminophen 325mg tablet PO PRN ×2 (15:25)
[2022-12-05] MEDS ORDERED: mag hydrox/Alum hydrox/simeth 30ml oral suspension PO PRN (15:25)
[2022-12-05] MEDS ORDERED: loperamide 2mg capsule PO PRN (15:25)
--- NOTE | 2022-12-05 15:53 | NUR ---
Admit note: Pt admitted to [place] [facility] today on 5150 for DTS from our ER at 1510. Pt reported that she planned to slit her throat. Pt reported that people were out to get her and she'd rather be than to listen to the voices. Pt unable to safety plan. Pt has history bipolar and anxiety.
[2022-12-05 19:22] VITALS: BP 140/82
[2022-12-05] MEDS: prazosin 1mg capsule PO SCH (20:19)
--- NOTE | 2022-12-06 06:04 | NUR ---
Nursing Progress Note: Problem: Pt admitted to [place] [facility] 12/06. He is a 5150 for DTS. Pt reported that she planned to slit her throat. Pt reported that people were out to get her and she'd rather be than to listen to the voices. Pt unable to safety plan. Pt has history bipolar and anxiety. Intervention: Provide medication administration & medication management; maintained a safe & secure environment Response: Patient is observed in the community room. She socializes with her peers. She watches television. She denies S/I or H/I. Patient hears voices to "kill myself." No visual hallucinations reported. Some sadness. Patient ate dinner and was medication compliant. Plan: Pt continues to require a safe and supportive environment while awaiting placement.
[2022-12-06] MEDS: furosemide 20MG tablet PO SCH (07:58)
[2022-12-06] MEDS: gabapentin 300mg capsule PO SCH ×3 (07:58→20:48)
[2022-12-06] MEDS: ARIPIPRAZOLE 10 MG TABLET PO SCH (07:58)
[2022-12-06] MEDS: potassium Cl 20 mEq SR tablet PO SCH (07:58)
[2022-12-06] MEDS: propranolol 40mg tablet PO SCH ×2 (07:59→20:47)
[2022-12-06 08:03] VITALS: BP 135/71
[2022-12-06] MEDS: hydrOXYzine 25 MG tablet PO PRN (08:22)
[2022-12-06 08:33] LABS: CHOL/HDL RATIO 4.9 (0.00-4.99); CHOLESTEROL 170 MG/DL (0-200); HDL CHOLESTEROL 35 MG/DL (35-60); LDL CHOLESTEROL 112 MG/DL (50-100); TRIGLYCERIDES 127 MG/DL (20-135)
[2022-12-06 08:37] LABS: HEMOGLOBIN A1C 5.6 % (4.5-6.2)
[2022-12-06] MEDS ORDERED: OLANZapine 2.5MG tablet PO ONE (14:05)
[2022-12-06] MEDS ORDERED: clonazePAM 0.5mg tablet PO PRN (14:05)
[2022-12-06] MEDS ORDERED: QUEtiapine 25mg tablet PO PRN (14:05)
[2022-12-06] MEDS ORDERED: venlafaxine XR 75mg capsule (Q24H) PO ONE (14:05)
[2022-12-06] MEDS ORDERED: clonazePAM 0.5mg tablet PO ONE (14:05)
[2022-12-06] MEDS ORDERED: traZODone 50mg tablet PO PRN (14:10)
[2022-12-06] MEDS ORDERED: olanzapine 10mg tablet PO ONE (14:15)
--- NOTE | 2022-12-06 14:35 | NUR ---
Nursing Progress Note: Problem: Pt admitted to [place] for [facility] 12/06 on a 5150 for DTS. Pt reported that she planned to slit her throat. Pt reported that people were out to get her and she'd rather be than to listen to the voices. Pt unable to safety plan. Pt has history bipolar and anxiety. Intervention: Provide medication administration & medication management; maintained a safe & secure environment Intervention: 1:1 assessment, establishment of rapport, therapeutic conversation, active listening, ensured contract for safety. Medication administration/education/monitoring, provided distraction, direction, positive reinforcement, and Q 15 minute safety checks. Response: Pt was up for breakfast and cooperative with medications. Pt was tearful at times. Pt c/o CAH to kill herself. Pt states the voices are telling her she's not worth it, they are constantly playing in her head. Pt contracts for safety. Pt c/o 8/10 headache pain and was given PRN Tylenol 650 mg at 0759 with good effect. Pt was given PRN Atarax 50 mg at 0822 for increased anxiety with fair effect. Pt was seen by Dr Alvarez and one time doses of Zyprexa 10 mg, Klonopin 0.5 mg, and Effexor XR 75 mg were ordered and given at 1429. Pt's Trazodone was changed to 50 mg MRX1 HS PRN sleep. She has new orders for Klonopin 0.5 mg TID, Zyprexa 10 mg TID, Effexor 112.5 mg daily, Klonopin 0.5 mg Q6H PRN anxiety, and Seroquel 100 mg Q6H PRN agitation. Her Abilify and Atarax were D/c'd. Plan: Pt is in need of crisis interruption with medication management and monitoring until stable and no longer a danger to self. Addendum: 12/06/22 at 1509 by Lucille Franco RN (Lee) Pt is paranoid and believes that someone is after her.
[2022-12-06 19:00] VITALS: BP 135/81
[2022-12-06] MEDS: clonazePAM 0.5mg tablet PO SCH (20:47)
[2022-12-06] MEDS: olanzapine 10mg tablet PO SCH (20:47)
[2022-12-06] MEDS: prazosin 1mg capsule PO SCH (20:48)
--- NOTE | 2022-12-07 00:10 | NUR ---
Nursing Progress Note: Problem: Pt admitted to [facility] 12/06 on a 5150 for DTS. Pt reported that she planned to slit her throat. Pt reported that people were out to get her and she'd rather be than to listen to the voices. Pt unable to safety plan. Pt has history bipolar and anxiety. Intervention: Provide medication administration & medication management; maintained a safe & secure environment Intervention: 1:1 assessment, establishment of rapport, therapeutic conversation, active listening, ensured contract for safety. Medication administration/education/monitoring, provided distraction, direction, positive reinforcement, and Q 15 minute safety checks. Response: Patient in community room talking with cohorts and socializing at shift change. The patient reports hearing voices, patient denies SI HI. Patient claims that she has been having worsening depression and her meds needed to be straightened out. The patient stayed in community room for most of the evening with peers talking and drawing pictures. Patient asked about meds she was going to take in the evening. patient was educated on medications ordered and patient agreed to take them. Patient ate snack and took meds shortly after w/o complications. patient was able to go to bed shortly after where she promptly fell asleep. Plan: Pt is in need of crisis interruption with medication management and monitoring until stable and no longer a danger to self.
[2022-12-07 07:40] VITALS: BP 151/87
[2022-12-07] MEDS ORDERED: venlafaxine XR 37.5mg cap (Q24H) PO SCH (08:00)
[2022-12-07] MEDS: furosemide 20MG tablet PO SCH (08:16)
[2022-12-07] MEDS: clonazePAM 0.5mg tablet PO SCH ×3 (08:17→20:49)
[2022-12-07] MEDS: potassium Cl 20 mEq SR tablet PO SCH (08:17)
[2022-12-07] MEDS: propranolol 40mg tablet PO SCH ×2 (08:17→20:49)
[2022-12-07] MEDS: olanzapine 10mg tablet PO SCH ×2 (08:17→13:07)
[2022-12-07] MEDS: gabapentin 300mg capsule PO SCH ×2 (08:17→13:08)
[2022-12-07] MEDS ORDERED: venlafaxine 37.5mg tablet PO ONE (14:35)
[2022-12-07 15:11] LABS: HBSAG SCREEN Negative (Negative); HEP B CORE AB, TOT Negative (Negative)
--- NOTE | 2022-12-07 15:33 | NUR ---
Nursing Progress Note: Problem: Pt admitted to [facility] 12/06 on a 5150 for DTS. Pt reported that she planned to slit her throat. Pt reported that people were out to get her and she'd rather be than to listen to the voices. Pt unable to safety plan. Pt has history bipolar and anxiety. Intervention: Provide medication administration & medication management; maintained a safe & secure environment Intervention: 1:1 assessment, establishment of rapport, therapeutic conversation, active listening, ensured contract for safety. Medication administration/education/monitoring, MRSA/handwashing education, provided distraction, direction, positive reinforcement, and Q 15 minute safety checks. Response: Pt was up for breakfast and cooperative with medications. Pt reports that the voices and her paranoia have decreased since yesterday. Pt denied SI. Pt c/o feeling a little tired from the new medications. Pt's Zyprexa was changed today to 15 mg daily @2000, 10 mg @ 1400, and 5 mg @ 0800. Her gabapentin was D/c'd. She was given a one time dose of Effexor XR 37.5 mg today at 1435. Her daily dose of Effexor XR was increased to 150 mg. Pt's Hep B results are back and nonreactive. 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 Pt was educated verbally and with printed out materials on MRSA and how to prevent spreading it. Plan: Pt is in need of crisis interruption with medication management and monitoring until stable and no longer a danger to self.
[2022-12-07 20:00] VITALS: BP 134/85
[2022-12-07] MEDS: traZODone 50mg tablet PO PRN (20:48)
[2022-12-07] MEDS: OLANZAPINE 5 MG TABLET PO SCH (20:48)
[2022-12-07] MEDS: prazosin 1mg capsule PO SCH (20:49)
--- NOTE | 2022-12-08 00:18 | NUR ---
Nursing Progress Note: Problem: Pt admitted to [facility] 12/06 on a 5150 for DTS. Pt reported that she planned to slit her throat. Pt reported that people were out to get her and she'd rather be than to listen to the voices. Pt unable to safety plan. Pt has history bipolar and anxiety. Intervention: Provide medication administration & medication management; maintained a safe & secure environment Intervention: 1:1 assessment, establishment of rapport, therapeutic conversation, active listening, ensured contract for safety. Medication administration/education/monitoring, provided distraction, direction, positive reinforcement, and Q 15 minute safety checks. Response: Patient in community room sitting with peers at shift change. patient seen socializing with peers, laughing and interacting with staff appropriately. patient 1:1, patient claims that the voices are getting to be less and denies SI HI. The patient reports wanting to move to another state to go live with a relative as she lives alone in [facility]. Patient spent the majority of the evening drawing and watching movies. patient took evening meds w/o complications. patient went to bed shortly after med pass. Plan: Pt is in need of crisis interruption with medication management and monitoring until stable and no longer a danger to self.
[2022-12-08 08:00] VITALS: BP 134/76
[2022-12-08] MEDS ORDERED: venlafaxine XR 75mg capsule (Q24H) PO SCH (08:00)
[2022-12-08] MEDS: propranolol 40mg tablet PO SCH ×2 (08:19→20:23)
[2022-12-08] MEDS: furosemide 20MG tablet PO SCH (08:19)
[2022-12-08] MEDS: clonazePAM 0.5mg tablet PO SCH ×3 (08:19→20:23)
[2022-12-08] MEDS: OLANZAPINE 5 MG TABLET PO SCH ×2 (08:19→20:22)
[2022-12-08] MEDS: potassium Cl 20 mEq SR tablet PO SCH (08:19)
[2022-12-08] MEDS: olanzapine 10mg tablet PO SCH (13:56)
--- NOTE | 2022-12-08 17:00 | NUR ---
Nursing Progress Note: Problem: Pt admitted to [facility] 12/06 on a 5150 for DTS. Pt reported that she planned to slit her throat. Pt reported that people were out to get her and she'd rather be than to listen to the voices. Pt unable to safety plan. Pt has history bipolar and anxiety. Intervention: Provide medication administration & medication management; Maintained a safe & supportive environment; Clear & simple instructions; Direction & encouragement regarding performance of ADLs; monitored behaviors & maintained clear boundaries; Patient physical assessment & 1:1 patient interview; Therapeutic conversation & active listening; Patient education & monitoring. Response: Received patient while she was sleeping in bed then ambulated to the Community Room for coffee and sat with peers visiting until breakfast was served. 1:1 Patient Interview and Patient Physical Assessment was completed and patient reported I feel paranoid and I hear voices that tell me Im better off . I need to move near [place] as my daughter got an apartment for both of us, and I need to move. Patient reports she is also feeling very depressed for the past few months. Patient took her 0800 medications without hesitation and at approximately 1214 c/o increased anxiety and was given Klonopin 0.5mg po with relief. Plan: Pt is in need of crisis interruption with medication management and monitoring until stable and no longer a danger to self.
[2022-12-08] MEDS ORDERED: venlafaxine 37.5mg tablet PO ONE (17:50)
[2022-12-08 20:00] VITALS: BP 134/76
[2022-12-08] MEDS: prazosin 1mg capsule PO SCH (20:22)
[2022-12-08] MEDS: docusate sod 100mg capsule PO SCH (20:22)
--- NOTE | 2022-12-09 02:16 | NUR ---
Nursing Progress Note: Problem: Pt admitted to [facility] for [facility] 12/06 on a 5150 for DTS. Pt reported that she planned to slit her throat. Pt reported that people were out to get her and she'd rather be than to listen to the voices. Pt unable to safety plan. Pt has history bipolar and anxiety. Intervention: Provide medication administration & medication management; Maintained a safe & supportive environment; Clear & simple instructions; Direction & encouragement regarding performance of ADLs; monitored behaviors & maintained clear boundaries; Patient physical assessment & 1:1 patient interview; Therapeutic conversation & active listening; Patient education & monitoring. Response: Pt sitting up in Group room watching TV and talking with other pts at start of shift. During introductions she is pleasant and appropriate, makes good eye contact smiles frequently. She was still in group room at [facility]. Pt took all medications without incident. She was aware of increase in Effexor dosage and that she would get a supplemental dose this shift. Talked to pt briefly asked if I could interview her in her room later, pt agreed. Unfortunately Pt went to room and went to sleep before interview took place. Pt is sleeping at this time. Plan: Pt is in need of crisis interruption with medication management and monitoring until stable and no longer a danger to self.
[2022-12-09 07:50] VITALS: BP 122/75
[2022-12-09] MEDS: potassium Cl 20 mEq SR tablet PO SCH (08:11)
[2022-12-09] MEDS: propranolol 40mg tablet PO SCH ×2 (08:11→20:36)
[2022-12-09] MEDS: venlafaxine XR 75mg capsule (Q24H) PO SCH (08:11)
[2022-12-09] MEDS: clonazePAM 0.5mg tablet PO SCH ×3 (08:12→20:35)
[2022-12-09] MEDS: furosemide 20MG tablet PO SCH (08:12)
[2022-12-09] MEDS: OLANZAPINE 5 MG TABLET PO SCH ×2 (08:12→20:36)
[2022-12-09] MEDS: docusate sod 100mg capsule PO SCH ×2 (08:12→20:35)
[2022-12-09] MEDS: olanzapine 10mg tablet PO SCH (13:01)
--- NOTE | 2022-12-09 14:49 | NUR ---
Pt. attended group today. Todays group was about the difference between Growth Mindset vs. Fixed Mindset. We learned about the differences and then discussed what aspect of developing a growth mindset they wanted to work on. Pt. engaged well in group today with her peers. She was interested in the topic and shared that she was looking forward to moving to be with her daughter in [place]. She believes this change of scenery and new beginning will help her with her growth mindset. She feels living alone is not helpful for her as she gets lonely and depressed. Her demeanor was calm, compliant and pleasant to work with. She was alert and oriented X 3. Her thought content and thought process were WNL. Sirisha Biswas LCSW
--- NOTE | 2022-12-09 16:50 | NUR ---
Nursing Progress Note: Problem: Pt admitted to [facility] 12/06 on a 5150 for DTS. Pt reported that she planned to slit her throat. Pt reported that people were out to get her and she'd rather be than to listen to the voices. Pt unable to safety plan. Pt has history bipolar and anxiety. Intervention: Provide medication administration & medication management; Maintained a safe & supportive environment; Clear & simple instructions; Direction & encouragement regarding performance of ADLs; monitored behaviors & maintained clear boundaries; Patient physical assessment & 1:1 patient interview; Therapeutic conversation & active listening; Patient education & monitoring. Response: Patient woke up at 0730 and ambulated to the Community Room for breakfast. Patient reported after breakfast that she slept well during the night and felt well this morning. Patient ate breakfast and stayed in the Community Room visiting with peers. Patient took a morning nap from 0930 to 1310, and requested Seroquel when she walked out of her room to the Community Room for lunch. Patients scheduled Seroquel that was due at 1400 was given early per her request. Patient reported she was feeling better at approximately 1430, and continued to stay in the Community Room visiting with another patient the rest of the afternoon. Patient voiced passive IS and reported that she heard voices, but it was during the night. Plan: Pt is in need of crisis interruption with medication management and monitoring until stable and no longer a danger to self.
[2022-12-09 19:32] VITALS: BP 128/73
[2022-12-09] MEDS: prazosin 1mg capsule PO SCH (20:36)
[2022-12-09] MEDS: traZODone 50mg tablet PO PRN (21:30)
--- NOTE | 2022-12-10 02:11 | NUR ---
Nursing Progress Note: Problem: Pt admitted to [facility] for [facility] 12/06 on a 5150 for DTS. Pt reported that she planned to slit her throat. Pt reported that people were out to get her and she'd rather be than to listen to the voices. Pt unable to safety plan. Pt has history bipolar and anxiety. Intervention: Provide medication administration & medication management; Maintained a safe & supportive environment; Clear & simple instructions; Direction & encouragement regarding performance of ADLs; monitored behaviors & maintained clear boundaries; Patient physical assessment & 1:1 patient interview; Therapeutic conversation & active listening; Patient education & monitoring. Response: Pt sitting up in Group room watching TV and talking with other pts at start of shift. Pt irritable she was upset about a phone conversation she had with her daughter who lives in [place]. The daughter had offered for the pt to come and live with her but now has changed her mind. The pt was really disappointed because she does not like living a alone. Currently she lives in a [place] home [place] in [place]. She denies SI "I am depressed". She says she was hearing voices this morning but not now. Pt stayed in group room took PRN Trazodone and went to bed sleeping at this time. Plan: Pt is in need of crisis interruption with medication management and monitoring until stable and no longer a danger to self.
[2022-12-10] MEDS: OLANZAPINE 5 MG TABLET PO SCH ×2 (07:57→20:01)
[2022-12-10] MEDS: docusate sod 100mg capsule PO SCH ×2 (07:57→20:00)
[2022-12-10] MEDS: clonazePAM 0.5mg tablet PO SCH ×3 (07:57→20:01)
[2022-12-10] MEDS: potassium Cl 20 mEq SR tablet PO SCH (07:57)
[2022-12-10] MEDS: furosemide 20MG tablet PO SCH (07:58)
[2022-12-10] MEDS: venlafaxine XR 75mg capsule (Q24H) PO SCH (07:58)
[2022-12-10] MEDS: propranolol 40mg tablet PO SCH ×2 (07:59→20:01)
[2022-12-10 08:00] VITALS: BP 139/75
--- NOTE | 2022-12-10 09:00 | NUR ---
Initial: Pt admit for psychosis and SI. Currently on a regular diet and eating well, documented with mostly 100% PO intake of meals. LBM 12/07. Pt started on routine bowel care 12/08 and has additional PRN bowel care available. No nutrition intervention implemented at this time. Will continue to follow. Recommendations: 1) Continue regular diet 2) Routine bowel care 3) Weekly scaled weights Addendum: 12/10/22 at [address] Amended: Links added.
--- NOTE | 2022-12-10 12:32 | NUR ---
Completed and sent [facility] referral. Attempted to reach Marya's daughter, Jenn (ph# [phone]) and number was disconnected. Will see if Marya has an alternate number for daughter. SEBASTIAN Pepper
[2022-12-10] MEDS: olanzapine 10mg tablet PO SCH (13:21)
[2022-12-10] MEDS: magnesium hydroxide 30ml (MOM) UD suspension PO PRN (13:47)
--- NOTE | 2022-12-10 14:24 | NUR ---
Attempted to reach Marya's daughter, Jenn (ph#[phone]), to discuss Marya's desire to live with her in [place]. Was unable to leave a message because the voicemail was full. SEBASTIAN Pepper
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
--- NOTE | 2022-12-10 16:28 | NUR ---
Nursing Progress Note: Problem: Pt admitted to [facility] 12/06 on a 5150 for DTS. Pt reported that she planned to slit her throat. Pt reported that people were out to get her and she'd rather be than to listen to the voices. Pt unable to safety plan. Pt has history bipolar and anxiety. Intervention: Provide medication administration & medication management; Maintained a safe & supportive environment; Clear & simple instructions; Direction & encouragement regarding performance of ADLs; monitored behaviors & maintained clear boundaries; Patient physical assessment & 1:1 patient interview; Therapeutic conversation & active listening; Patient education & monitoring. Response: Patient was up at 0730 and ambulated to the Community Room and ate breakfast. Patient sat by peers that she enjoys talking to in the Community Room. Patient took her 0800 medications without hesitation, and then stayed in the Community Room for most of the day. During the patients physical assessment, the patient reported that she has been having small bowel movements every day, but not sure if she still isnt a bit constipated. Patient was given Milk of Magnesia at approximately 1345, after lunch. Patient endorses passive SI and denies hearing voices. Patient was referred to [facility] today by MAAME Qureshi. Will continue to monitor for her interview as well as TB test if needed. Plan: Pt is in need of crisis interruption with medication management and monitoring until stable and no longer a danger to self.
[2022-12-10] MEDS: traZODone 50mg tablet PO PRN (20:01)
[2022-12-10] MEDS: prazosin 1mg capsule PO SCH (20:01)
[2022-12-10 20:45] VITALS: BP 124/79
--- NOTE | 2022-12-10 21:40 | NUR ---
Nursing Progress Note: Problem: Pt admitted to [facility] for [facility] 12/06 on a 5150 for DTS. Pt reported that she planned to slit her throat. Pt reported that people were out to get her and she'd rather be than to listen to the voices. Pt unable to safety plan. Pt has history bipolar and anxiety. Intervention: Met one to one with the patient in her room to assess for severity of depressive symptoms, self harm risk and for continued psychotic symptoms. Physical assessment completed. Assessed for medication side effects. Response: The patient was very pleasant and cooperative when approached for the evening assessment. The patient stated that "I feel like I'm doing a lot better" She denies medication side effects. She reports that she is looking forward to moving to [place] to live with her daughter. She stated that last night she stated that she slept well. She denies active or passive suicidal thoughts. She denied auditory or visual hallucinations. She did endorse some continued paranoia that people are out to get her. She stated that her concentration was "so so" Plan: Continue q 15 minute safety checks. Assess q shift and prn for self harm risk. Provide patient medication education as needed.
[2022-12-11 08:00] VITALS: BP 123/76
[2022-12-11] MEDS: furosemide 20MG tablet PO SCH (08:01)
[2022-12-11] MEDS: clonazePAM 0.5mg tablet PO SCH ×3 (08:02→20:17)
[2022-12-11] MEDS: OLANZAPINE 5 MG TABLET PO SCH ×2 (08:02→20:17)
[2022-12-11] MEDS: venlafaxine XR 75mg capsule (Q24H) PO SCH (08:02)
[2022-12-11] MEDS: potassium Cl 20 mEq SR tablet PO SCH (08:02)
[2022-12-11] MEDS: docusate sod 100mg capsule PO SCH ×2 (08:02→20:17)
[2022-12-11] MEDS: propranolol 40mg tablet PO SCH ×2 (08:02→20:17)
[2022-12-11] MEDS: olanzapine 10mg tablet PO SCH (13:12)
--- NOTE | 2022-12-11 15:52 | NUR ---
Therapeutic group Pt. attended group today. Todays group built upon the AM group (an image to focus on that is calming, grounding), introducing the topic of coping better when we feel good about ourselves. Exercise: finding positive self attributes (kind, brave, resilient), exploring specific words or images (today was different animals) with those attributes, and allowing ourselves to see ourselves as loyal (dog), caring (elephant), barrera (old bryant deer), etc. Pt was engaged in the topic as evidenced by staying in the group room, interacting with content, and talking with this filing writer and peers. Thought content was linear, thought process was WNL. Client was, to this filing writer, clear and present. Client politely but firmly stated to a peer who was being verbally intrusive with client, "Actually, X is not happening today. It would have already happened. It would be nice if interrupting" could be reduced. Client's demeanor was calm, engaged, pleasant to work with.
--- NOTE | 2022-12-11 16:55 | NUR ---
Nursing Progress Note: Problem: Pt admitted to [facility] for [facility] 12/06 on a 5150 for DTS. Pt reported that she planned to slit her throat. Pt reported that people were out to get her and she'd rather be than to listen to the voices. Pt unable to safety plan. Pt has history bipolar and anxiety. Intervention: Provide medication administration & medication management; Maintained a safe & supportive environment; Clear & simple instructions; Direction & encouragement regarding performance of ADLs; monitored behaviors & maintained clear boundaries; Patient physical assessment & 1:1 patient interview; Therapeutic conversation & active listening; Patient education & monitoring. Response: Patient was up for breakfast and accepted her morning meds. She reports that shes doing fine, and she appears better than last time this nurse saw her. Patient spends the day in the community room with peers. She attends all groups. Patient continues to endorse SI, but its getting better. She appears to be lonely and lacking affection. She has been referred to [facility], and hopes she is accepted, that will give me another month to figure this out. Patient has no behavioral problems. Plan: Pt is in need of crisis interruption with medication management and monitoring until stable and no longer a danger to self.
[2022-12-11] MEDS: prazosin 1mg capsule PO SCH (20:17)
[2022-12-11 20:27] VITALS: BP 114/76
--- NOTE | 2022-12-11 22:07 | NUR ---
Nursing Progress Note: Problem: Pt admitted to [facility] for [facility] 12/06 on a 5150 for DTS. Pt reported that she planned to slit her throat. Pt reported that people were out to get her and she'd rather be than to listen to the voices. Pt unable to safety plan. Pt has history bipolar and anxiety. Intervention: Provide medication administration & medication management; Maintained a safe & supportive environment; Clear & simple instructions; Direction & encouragement regarding performance of ADLs; monitored behaviors & maintained clear boundaries; Patient physical assessment & 1:1 patient interview; Therapeutic conversation & active listening; Patient education & monitoring. Response: Patient was up and walking around the unit after change of shift. Patient was smiling and talking to a couple of peers. RN sat with patient in the Community Room. Patient denies suicidal ideation. Patient sates she if feeling a little better this evening and states she has something to look forward to when she moves in with her daughter. Patient does have some business to take care of before she can move up to [place]. Patient emotions appear to go up and down. Plan: Pt is in need of crisis interruption with medication management and monitoring until stable and no longer a danger to self.
[2022-12-12] MEDS: docusate sod 100mg capsule PO SCH ×2 (07:58→20:23)
[2022-12-12] MEDS: potassium Cl 20 mEq SR tablet PO SCH (07:58)
[2022-12-12] MEDS: clonazePAM 0.5mg tablet PO SCH ×3 (07:58→20:23)
[2022-12-12] MEDS: furosemide 20MG tablet PO SCH (07:58)
[2022-12-12] MEDS: venlafaxine XR 75mg capsule (Q24H) PO SCH (07:58)
[2022-12-12] MEDS: OLANZAPINE 5 MG TABLET PO SCH ×2 (07:58→20:23)
[2022-12-12] MEDS: propranolol 40mg tablet PO SCH ×2 (07:58→20:23)
[2022-12-12 08:00] VITALS: BP 112/60
--- NOTE | 2022-12-12 12:52 | NUR ---
Therapeutic group Client attended group today. Todays group focused on our unique ways of self-soothing: sensory (taste, smell), verbal, visual, tactile, combination, etc. Exercise included drawing and talking, while having the Center's scheduled snack. Thought content was linear and WNL. Client was dressed neatly, hygiene WNL. Client interacted if asked a direct question, and interacted with material by creating a small collage of "power" animals (owl, dog) and a tree. Client's demeanor was calm, context appropriate, client stated she was anxious due to activity on the unit.
[2022-12-12] MEDS: olanzapine 10mg tablet PO SCH (14:01)
--- NOTE | 2022-12-12 15:22 | NUR ---
Marya reported she is in the process of getting on the lease of her daughter's apartment. She reported her [id number] can drive her to [place] upon discharge. Attempted to reach Marya's daughter, Jenn (ph#[phone]), again to confirn this and was unable to leave a message. [facility] can interview Marya on 12/17/22 at 2 PM. Marya was agreeable to [facility] as a back up plan. SEBASTIAN Pepper
--- NOTE | 2022-12-12 17:21 | NUR ---
Nursing Progress Note: Problem: Pt admitted to [facility] for [facility] Health 12/06 on a 5150 for DTS. Pt reported that she planned to slit her throat. Pt reported that people were out to get her and she'd rather be than to listen to the voices. Pt unable to safety plan. Pt has history bipolar and anxiety. Intervention: Provide medication administration & medication management; Maintained a safe & supportive environment; Clear & simple instructions; Direction & encouragement regarding performance of ADLs; monitored behaviors & maintained clear boundaries; Patient physical assessment & 1:1 patient interview; Therapeutic conversation & active listening; Patient education & monitoring. Response: Patient awake and in community room for breakfast. She continues to look better, smiles more, and generally looks content. Today she is finally not having SI. Patient spends most of her day in the community room. She stays in one chair, and doesnt move around much. She appears to have low energy, due to her depression, but now has a plan. Patient says that her daughter is in a 2 bedroom, and she can move to [place] and live with her. This has made her a little bit hopeful about her future. Patient continues to have persistent negative thoughts that deceive her and make her feel unworthy and un-loveable. She is medication compliant, and has been referred to [facility]. If accepted she will have more time and resources to help her move forward. Plan: Pt is in need of crisis interruption with medication management and monitoring until stable and no longer a danger to self.
[2022-12-12 20:00] VITALS: BP 133/92
[2022-12-12] MEDS: traZODone 50mg tablet PO PRN (20:23)
[2022-12-12] MEDS: prazosin 1mg capsule PO SCH (20:23)
--- NOTE | 2022-12-13 05:05 | NUR ---
Nursing Progress Note: Problem: Pt admitted to [facility] for Behavioral Health 12/06 on a 5150 for DTS. Pt reported that she planned to slit her throat. Pt reported that people were out to get her and she'd rather be than to listen to the voices. Pt unable to safety plan. Pt has history bipolar and anxiety. Intervention: Provide medication administration & medication management; Maintained a safe & supportive environment; Clear & simple instructions; Direction & encouragement regarding performance of ADLs; monitored behaviors & maintained clear boundaries; Patient physical assessment & 1:1 patient interview; Therapeutic conversation & active listening; Patient education & monitoring. Maintained Q 15min safety checks. Response: Patient walking the halls and in community room socializing with cohort at start of shift. 1:1 assessment pt states Im doing pretty good, cant complain. Pt denies SI/AH/VH. Pt is excited to move to [place] with daughter. Pt has anxiety and depression that comes and goes, she states its from her medication adjustment. HS meds administered with PRN trazodone. Pt slept through the night. Plan: Pt is in need of crisis interruption with medication management and monitoring until stable and no longer a danger to self.
[2022-12-13 08:00] VITALS: BP 138/71
[2022-12-13] MEDS: furosemide 20MG tablet PO SCH (08:37)
[2022-12-13] MEDS: clonazePAM 0.5mg tablet PO SCH ×3 (08:37→20:51)
[2022-12-13] MEDS: potassium Cl 20 mEq SR tablet PO SCH (08:37)
[2022-12-13] MEDS: docusate sod 100mg capsule PO SCH ×2 (08:37→20:51)
[2022-12-13] MEDS: OLANZAPINE 5 MG TABLET PO SCH ×2 (08:38→20:51)
[2022-12-13] MEDS: propranolol 40mg tablet PO SCH ×2 (08:38→20:51)
[2022-12-13] MEDS: venlafaxine XR 75mg capsule (Q24H) PO SCH (08:38)
[2022-12-13] MEDS: olanzapine 10mg tablet PO SCH (14:07)
--- NOTE | 2022-12-13 18:01 | NUR ---
Nursing Progress Note: Problem: Pt admitted to [facility] for Behavioral Health 12/06 on a 5150 for DTS. Pt reported that she planned to slit her throat. Pt reported that people were out to get her and she'd rather be than to listen to the voices. Pt unable to safety plan. Pt has history bipolar and anxiety. Intervention: Provide medication administration & medication management; Maintained a safe & supportive environment; Clear & simple instructions; Direction & encouragement regarding performance of ADLs; monitored behaviors & maintained clear boundaries; Patient physical assessment & 1:1 patient interview; Therapeutic conversation & active listening; Patient education & monitoring. Response: patient was up early, and went to the community room for breakfast. There is one chair that she sits in, and for the most part, doesnt leave. She does not miss groups that way, but there is also little participation on her part. Patient does not start conversations or continue them. That makes it hard to know what her mental status is. She is compliant with all medications without comment. Patient plans to live with her daughter in [place], and says there are lots of things she needs to do first. She has not yet taken the initiative to start preparing. Plan: Pt is in need of crisis interruption with medication management and monitoring until stable and no longer a danger to self.
[2022-12-13 20:00] VITALS: BP 134/74
[2022-12-13] MEDS: traZODone 50mg tablet PO PRN (20:51)
[2022-12-13] MEDS: prazosin 1mg capsule PO SCH (20:51)
--- NOTE | 2022-12-14 03:09 | NUR ---
Nursing Progress Note: Problem: Pt admitted to [facility] for Behavioral Health 12/06 on a 5150 for DTS. Pt reported that she planned to slit her throat. Pt reported that people were out to get her and she'd rather be than to listen to the voices. Pt unable to safety plan. Pt has history bipolar and anxiety. Intervention: Provide medication administration & medication management; Maintained a safe & supportive environment; Clear & simple instructions; Direction & encouragement regarding performance of ADLs; monitored behaviors & maintained clear boundaries; Patient physical assessment & 1:1 patient interview; Therapeutic conversation & active listening; Patient education & monitoring. Maintained Q 15min safety checks. Response: Upon arrival to shift, noted patient sitting with other members of cohort in activity room. She was quiet and disengaged however, pleasant and cooperative when spoken to. Compliant with HS meds and requested her PRN Desyrel 50 mg po x1 to help with sleep. 1:1 assessment patient denied SI/AH/VH. Slept through the night without event. Plan: Pt is in need of crisis interruption with medication management and monitoring until stable and no longer a danger to self.
[2022-12-14 08:00] VITALS: BP 120/75
[2022-12-14] MEDS ORDERED: venlafaxine XR 75mg capsule (Q24H) PO SCH ×2 (08:00→09:00)
[2022-12-14] MEDS: clonazePAM 0.5mg tablet PO SCH ×3 (08:08→20:11)
[2022-12-14] MEDS: potassium Cl 20 mEq SR tablet PO SCH (08:09)
[2022-12-14] MEDS: docusate sod 100mg capsule PO SCH ×2 (08:09→20:12)
[2022-12-14] MEDS: propranolol 40mg tablet PO SCH ×2 (08:09→20:12)
[2022-12-14] MEDS: furosemide 20MG tablet PO SCH (08:09)
[2022-12-14] MEDS: OLANZAPINE 5 MG TABLET PO SCH ×2 (08:09→20:11)
[2022-12-14] MEDS ORDERED: venlafaxine XR 37.5mg cap (Q24H) PO SCH (09:00)
[2022-12-14] MEDS: olanzapine 10mg tablet PO SCH (13:49)
--- NOTE | 2022-12-14 17:43 | NUR ---
Nursing Progress Note: Problem: Pt admitted to [facility] for Behavioral Health 12/06 on a 5150 for DTS. Pt reported that she planned to slit her throat. Pt reported that people were out to get her and she'd rather be than to listen to the voices. Pt unable to safety plan. Pt has history bipolar and anxiety. Intervention: Provide medication administration & medication management; Maintained a safe & supportive environment; Clear & simple instructions; Direction & encouragement regarding performance of ADLs; monitored behaviors & maintained clear boundaries; Patient physical assessment & 1:1 patient interview; Therapeutic conversation & active listening; Patient education & monitoring. Response: Received patient sleeping in bed at change of shift. Patient attends breakfast in the dining room and is very social at her table. Patient takes medications as directed. Patient then returns to bed for a long nap. Patient reports that she does not feel suicidal and does not have A/H. She states that she is anxious and paranoid. She has a discharge plan formulating, that she will go and stay with her daughter, and that her sister in law will drive her to her daughters. Plan: Pt is in need of crisis interruption with medication management and monitoring until stable and no longer a danger to self.
[2022-12-14 20:00] VITALS: BP 128/80
[2022-12-14] MEDS: prazosin 1mg capsule PO SCH (20:12)
[2022-12-14] MEDS: traZODone 50mg tablet PO PRN (20:12)
--- NOTE | 2022-12-15 03:12 | NUR ---
Nursing Progress Note: Problem: Pt admitted to [facility] for Behavioral Health 12/06 on a 5150 for DTS. Pt reported that she planned to slit her throat. Pt reported that people were out to get her and she'd rather be than to listen to the voices. Pt unable to safety plan. Pt has history bipolar and anxiety. Intervention: Provide medication administration & medication management; Maintained a safe & supportive environment; Clear & simple instructions; Direction & encouragement regarding performance of ADLs; monitored behaviors & maintained clear boundaries; Patient physical assessment & 1:1 patient interview; Therapeutic conversation & active listening; Patient education & monitoring. Response: Upon arrival to shift noted patient sitting up in her usual chair in the activity room socializing with cohort. She smiled as this nurse approached her and said hello. Shes pleasant and cooperative. 1:1 assessment included denial of SI, A/H & V/H. No delusions noted. Reports that she feels better than yesterday. Administered PRN Seroquel 50 mg x 1 at HS per patient request. Patient has been sleeping all night without event. Plan: Pt is in need of crisis interruption with medication management and monitoring until stable and no longer a danger to self.
[2022-12-15 07:00] VITALS: BP 124/72
[2022-12-15] MEDS: docusate sod 100mg capsule PO SCH ×2 (08:38→20:37)
[2022-12-15] MEDS: venlafaxine XR 75mg capsule (Q24H) PO SCH (08:39)
[2022-12-15] MEDS: clonazePAM 0.5mg tablet PO SCH ×3 (08:39→20:38)
[2022-12-15] MEDS: potassium Cl 20 mEq SR tablet PO SCH (08:39)
[2022-12-15] MEDS: OLANZAPINE 5 MG TABLET PO SCH (08:40)
[2022-12-15] MEDS: propranolol 40mg tablet PO SCH ×2 (08:40→20:38)
[2022-12-15] MEDS: furosemide 20MG tablet PO SCH (08:40)
[2022-12-15] MEDS ORDERED: olanzapine 10mg tablet PO PRN (11:25)
--- NOTE | 2022-12-15 18:02 | NUR ---
Nursing Progress Note: Problem: Pt admitted to [facility] for Behavioral Health 12/06 on a 5150 for DTS. Pt reported that she planned to slit her throat. Pt reported that people were out to get her and she'd rather be than to listen to the voices. Pt unable to safety plan. Pt has history bipolar and anxiety. Intervention: Provide medication administration & medication management; Maintained a safe & supportive environment; Clear & simple instructions; Direction & encouragement regarding performance of ADLs; monitored behaviors & maintained clear boundaries; Patient physical assessment & 1:1 patient interview; Therapeutic conversation & active listening; Patient education & monitoring. Response: Received patient sleeping at change of shift. Patient awakens for breakfast and joins her peers in the dining room. Patient is pleasant and socializes with peers throughout the day. Patient stays up in the day room for much of the day, with one nap while football game is playing. Patient states that she is paranoid and anxious that things may not work out for her to go and stay with her daughter in [place]. Positive reinforcement given on the fact that the plans are already unfolding. Patient states that she cannot live alone anymore in that she gets too depressed and paranoid by herself. Patient requested print outs of her medications and those were provided. Plan: Pt is in need of crisis interruption with medication management and monitoring until stable and no longer a danger to self.
[2022-12-15] MEDS: olanzapine 10mg tablet PO SCH (20:38)
[2022-12-15] MEDS: prazosin 1mg capsule PO SCH (20:39)
[2022-12-15] MEDS: traZODone 50mg tablet PO PRN (20:39)
[2022-12-15 20:40] VITALS: BP 131/78
--- NOTE | 2022-12-16 03:06 | NUR ---
Nursing Progress Note: Problem: Pt admitted to [facility] for Behavioral Health 12/06 on a 5150 for DTS. Pt reported that she planned to slit her throat. Pt reported that people were out to get her and she'd rather be than to listen to the voices. Pt unable to safety plan. Pt has history bipolar and anxiety. Intervention: Provide medication administration & medication management; Maintained a safe & supportive environment; Clear & simple instructions; Direction & encouragement regarding performance of ADLs; monitored behaviors & maintained clear boundaries; Patient physical assessment & 1:1 patient interview; Therapeutic conversation & active listening; Patient education & monitoring. Response: Pt sitting in group room at start of shift. She interacts pleasantly with staff and other pts. She remained in Group room through snack and until going to bed. Pt said she had a good day and is excited about discharge plan and going to live with her daughter. She talked about faxing information to the [facility] in [place]. Pt pleasant and cooperative with care. Took all medications and went to bed. Plan: Pt is in need of crisis interruption with medication management and monitoring until stable and no longer a danger to self.
[2022-12-16 08:00] VITALS: BP 118/77
[2022-12-16] MEDS: OLANZAPINE 5 MG TABLET PO SCH (08:14)
[2022-12-16] MEDS: docusate sod 100mg capsule PO SCH ×2 (08:14→21:09)
[2022-12-16] MEDS: venlafaxine XR 75mg capsule (Q24H) PO SCH (08:14)
[2022-12-16] MEDS: furosemide 20MG tablet PO SCH (08:14)
[2022-12-16] MEDS: potassium Cl 20 mEq SR tablet PO SCH (08:14)
[2022-12-16] MEDS: propranolol 40mg tablet PO SCH ×2 (08:14→21:10)
[2022-12-16] MEDS: clonazePAM 0.5mg tablet PO SCH ×3 (08:14→21:10)
[2022-12-16] MEDS: magnesium hydroxide 30ml (MOM) UD suspension PO PRN (09:37)
--- NOTE | 2022-12-16 17:53 | NUR ---
Nursing Progress Note: Problem: Pt admitted to [facility] for Behavioral Health 12/06 on a 5150 for DTS. Pt reported that she planned to slit her throat. Pt reported that people were out to get her and she'd rather be than to listen to the voices. Pt unable to safety plan. Pt has history bipolar and anxiety. Intervention: Provide medication administration & medication management; Maintained a safe & supportive environment; Clear & simple instructions; Direction & encouragement regarding performance of ADLs; monitored behaviors & maintained clear boundaries; Patient physical assessment & 1:1 patient interview; Therapeutic conversation & active listening; Patient education & monitoring. Response: RN received pt. asleep in bed at start of shift. Pt. awoke for breakfast and took medications. Pt. observed socializing with peers in community room. During 1:1 pt. denies SI/HI, A/V hallucinations. Pt. reports feeling tired from her medications. Pt. c/o constipation and received milk of magnesia and awaiting effect. Plan: Pt is in need of crisis interruption with medication management and monitoring until stable and no longer a danger to self.
[2022-12-16 19:50] VITALS: BP 104/77
[2022-12-16] MEDS: prazosin 1mg capsule PO SCH (21:09)
[2022-12-16] MEDS: olanzapine 10mg tablet PO SCH (21:10)
[2022-12-16] MEDS: traZODone 50mg tablet PO PRN (21:13)
--- NOTE | 2022-12-17 00:59 | NUR ---
Nursing Progress Note: Problem: Pt admitted to [facility] for Behavioral Health 12/06 on a 5150 for DTS. Pt reported that she planned to slit her throat. Pt reported that people were out to get her and she'd rather be than to listen to the voices. Pt unable to safety plan. Pt has history bipolar and anxiety. Intervention: Provide medication administration & medication management; Maintained a safe & supportive environment; Clear & simple instructions; Direction & encouragement regarding performance of ADLs; monitored behaviors & maintained clear boundaries; Patient physical assessment & 1:1 patient interview; Therapeutic conversation & active listening; Patient education & monitoring. Response: Pt sitting in group room at start of shift. She interacts pleasantly with staff and other pts. She remained in Group room through snack and until going to bed. Pt continues to make plans to go to her daughters in [place]. Per pt she is leaving . Pt pleasant and cooperative with care. Took all medications and went to bed. Plan: Pt is in need of crisis interruption with medication management and monitoring until stable and no longer a danger to self.
[2022-12-17 07:51] VITALS: BP 111/60
[2022-12-17] MEDS: OLANZAPINE 5 MG TABLET PO SCH (08:04)
[2022-12-17] MEDS: clonazePAM 0.5mg tablet PO SCH ×3 (08:04→20:17)
[2022-12-17] MEDS: venlafaxine XR 75mg capsule (Q24H) PO SCH (08:04)
[2022-12-17] MEDS: furosemide 20MG tablet PO SCH (08:04)
[2022-12-17] MEDS: docusate sod 100mg capsule PO SCH ×2 (08:04→20:16)
[2022-12-17] MEDS: propranolol 40mg tablet PO SCH ×2 (08:04→20:17)
[2022-12-17] MEDS: potassium Cl 20 mEq SR tablet PO SCH (08:04)
--- NOTE | 2022-12-17 13:30 | NUR ---
DISCHARGE PLAN Marya reported she wants to discharge on Friday. Her plan is for her [id number], Carmen, to pick her up to take her to her daughter's home in [place], [place]. Marya plans on living in [place] and is currently working on getting on the lease. Plan is to have [facility] deliver meds prior to discharge. SEBASTIAN Pepper
[2022-12-17] MEDS: magnesium hydroxide 30ml (MOM) UD suspension PO PRN ×2 (15:20→20:19)
--- NOTE | 2022-12-17 15:51 | NUR ---
Therapeutic group Client attended group today. Todays group focused on a breathing and sensory exercise of freeform drawing with breathing, calm music. After this grounding exercise, clients were then asked to proactive add something not random/what they wanted in their drawings. Clients were then asked to explain their choices, with peer encouragement and input. Client's thought content was not linear or related to group content. Client interacted with material as evidenced by creating a drawing, explaining it to the group, staying for the entirety of group, interacting with peers and this video game script writer. Client politely redirected a peer attempting to give her unwanted instructions. Client's demeanor was calm, appropriate, and pleasant to work with. Client had to retrieve a personal envelop taken by a peer who was being intrusive with the entire group. Client found her envelop quickly, was briefly and appropriately (to this video game script writer) frustrated, did not engage or escalate with peer.
--- NOTE | 2022-12-17 17:49 | NUR ---
Nursing Progress Note: Problem: Pt admitted to [facility] for Behavioral Health 12/06 on a 5150 for DTS. Pt reported that she planned to slit her throat. Pt reported that people were out to get her and she'd rather be than to listen to the voices. Pt unable to safety plan. Pt has history bipolar and anxiety. Intervention: Provide medication administration & medication management; Maintained a safe & supportive environment; Clear & simple instructions; Direction & encouragement regarding performance of ADLs; monitored behaviors & maintained clear boundaries; Patient physical assessment & 1:1 patient interview; Therapeutic conversation & active listening; Patient education & monitoring. Response: RN received pt. asleep in bed at start of shift, pt. awoke for breakfast and took all medications. Pt. social with peers and observed in the milieu participating in groups and watching TV. 1:1 done in community room. Pt. denies SI/HI A/V hallucinations. Pt. reports she is happy that she can go live with her daughter in [place] and is excited, but also a little nervous to be discharging . Plan: Pt is in need of crisis interruption with medication management and monitoring until stable and no longer a danger to self.
[2022-12-17 19:46] VITALS: BP 130/73
[2022-12-17] MEDS: prazosin 1mg capsule PO SCH (20:17)
[2022-12-17] MEDS: olanzapine 10mg tablet PO SCH (20:17)
[2022-12-17] MEDS: traZODone 50mg tablet PO PRN (20:20)
--- NOTE | 2022-12-18 00:08 | NUR ---
Nursing Progress Note: Problem: Pt admitted to [facility] for Behavioral Health 12/06 on a 5150 for DTS. Pt reported that she planned to slit her throat. Pt reported that people were out to get her and she'd rather be than to listen to the voices. Pt unable to safety plan. Pt has history bipolar and anxiety Interventions: One to one with the patient to assess mood, self harm risk and for psychotic symptoms. She was given PRN Trazodone for sleep per her request. Assessed for medication side effects. Physical assessment completed. Response: The patient was up on the unit until after snack. She was cooperative with the evening nursing assessment. She denies any kind of medication side effects. She stated that she felt she is doing much better than on admit. She denies psychotic symptoms and she did not appear distracted during the assessment. She denied any active or passive suicidal thoughts. She stated that she is looking forward to go and live with her daughter in [place] but at the same time she has anxiety because she has always lived in [place]. She stated that she has been sleeping well with the Trazodone. Plan: Continue q 15 minute safety checks. Assess for psychotic symptoms and self harm risk at least q shift and prn. Continue hospitalization until Friday per the patient report.
[2022-12-18 07:30] VITALS: BP 125/68
[2022-12-18] MEDS: OLANZAPINE 5 MG TABLET PO SCH (08:15)
[2022-12-18] MEDS: docusate sod 100mg capsule PO SCH ×2 (08:15→20:40)
[2022-12-18] MEDS: venlafaxine XR 75mg capsule (Q24H) PO SCH (08:15)
[2022-12-18] MEDS: propranolol 40mg tablet PO SCH ×2 (08:15→20:40)
[2022-12-18] MEDS: potassium Cl 20 mEq SR tablet PO SCH (08:15)
[2022-12-18] MEDS: clonazePAM 0.5mg tablet PO SCH ×3 (08:16→20:41)
[2022-12-18] MEDS: furosemide 20MG tablet PO SCH (08:16)
[2022-12-18] MEDS ORDERED: POTA-82 PO (11:32)
[2022-12-18] MEDS ORDERED: VENL150C58 PO (11:32)
[2022-12-18] MEDS ORDERED: TRAZ-251 PO (11:32)
[2022-12-18] MEDS ORDERED: OLAN20TA34 PO (11:32)
[2022-12-18] MEDS ORDERED: PRAZ1CAP5 PO (11:32)
[2022-12-18] MEDS ORDERED: CLON0.5T4 PO (11:32)
[2022-12-18] MEDS ORDERED: PROP40TA72 PO (11:32)
[2022-12-18] MEDS ORDERED: FURO-150 PO (11:32)
--- NOTE | 2022-12-18 12:37 | NUR ---
Spoke to Marya's daughter, Jenn (ph# [phone]), who confirmed the plan for Marya to discharge on Friday and go live with Jenn in [place]. Jenn reported she can help Marya with getting signed up for [place] insurance and finding a provider. Left a message for Marya's [id number], Carmen (ph# [phone]), requesting a call back. Plan is for Carmen to picking table worker Marya on Friday. SEBASTIAN Pepper
--- NOTE | 2022-12-18 18:01 | NUR ---
Marya Nursing Progress Note: Problem: Pt admitted to [facility] for Behavioral Health 12/06 on a 5150 for DTS. Pt reported that she planned to slit her throat. Pt reported that people were out to get her and she'd rather be than to listen to the voices. Pt unable to safety plan. Pt has history bipolar and anxiety. Intervention: Provide medication administration & medication management; Maintained a safe & supportive environment; Clear & simple instructions; Direction & encouragement regarding performance of ADLs; monitored behaviors & maintained clear boundaries; Patient physical assessment & 1:1 patient interview; Therapeutic conversation & active listening; Patient education & monitoring. Response: RN received pt. asleep in bed at start of shift. Pt. awoke for breakfast and took all medications. Pt. observed watching TV and socializing with peers. Pt. participates in groups. 1:1 done in community room. Pt. reports normal BM. Pt. denies all psych symptoms, states that she is excited about moving in with her daughter in [place]. Plan: Pt is in need of crisis interruption with medication management and monitoring until stable and no longer a danger to self.
[2022-12-18 19:00] VITALS: BP 130/72
[2022-12-18] MEDS: prazosin 1mg capsule PO SCH (20:39)
[2022-12-18] MEDS: traZODone 50mg tablet PO PRN (20:40)
[2022-12-18] MEDS: olanzapine 10mg tablet PO SCH (20:40)
--- NOTE | 2022-12-19 05:19 | NUR ---
Nursing Progress Note: Problem: Pt admitted to [facility] for Behavioral Health 12/06 on a 5150 for DTS. Pt reported that she planned to slit her throat. Pt reported that people were out to get her and she'd rather be than to listen to the voices. Pt unable to safety plan. Pt has history bipolar and anxiety. Intervention: Provide medication administration & medication management; Maintained a safe & supportive environment; Clear & simple instructions; Direction & encouragement regarding performance of ADLs; monitored behaviors & maintained clear boundaries; Patient physical assessment & 1:1 patient interview; Therapeutic conversation & active listening; Patient education & monitoring. Response: Patient was received sitting in community room socializing with other patients. Patient stated she was excited about leaving to go live with her daughter on Friday. Patient sister will be coming by to pick her up and drive her to [place]. Patient denied any suicidal ideations and took all night medication without difficulty. Patient spent the majority of shift socializing in community room and playing games until going to bed after snack. Plan: Pt is in need of crisis interruption with medication management and monitoring until stable and no longer a danger to self.
[2022-12-19] MEDS: clonazePAM 0.5mg tablet PO SCH ×3 (07:31→20:43)
[2022-12-19] MEDS: venlafaxine XR 75mg capsule (Q24H) PO SCH (07:31)
[2022-12-19] MEDS: potassium Cl 20 mEq SR tablet PO SCH (07:31)
[2022-12-19] MEDS: furosemide 20MG tablet PO SCH (07:31)
[2022-12-19] MEDS: propranolol 40mg tablet PO SCH ×2 (07:31→20:42)
[2022-12-19] MEDS: docusate sod 100mg capsule PO SCH ×2 (07:31→20:43)
[2022-12-19] MEDS: OLANZAPINE 5 MG TABLET PO SCH (07:32)
--- NOTE | 2022-12-19 07:36 | NUR ---
F/u 2/: Pt continues w/ mostly 100% PO intake of regular diet meeting estimated needs. LBM 2 per EMR. No nutrition intervention implemented at this time. Will continue to follow. Recommendations: 1) Continue regular diet 2) Routine bowel care 3) Weekly scaled weights Addendum: 12/19/22 at [address] Amended: Links added.
[2022-12-19 08:00] VITALS: BP 120/75
--- NOTE | 2022-12-19 10:36 | NUR ---
DISCHARGE 8 AM FRIDAY Marya's wiford-ra-sid, Carmen (ph# [phone]), reported she would like to pickling tank operator Marya at 8 AM on Friday to drive her to [place]. Informed her that Marya will need to get [place] health insurance and get established with a doctor and psychiatrist in [place]. She reported she and her daughter will help her do so. Informed her that [facility] meds will get delivered today so she will have them on hand when she discharges. SEBASTIAN Pepper
--- NOTE | 2022-12-19 17:20 | NUR ---
Nursing Progress Note: Problem: Pt admitted to [facility] for Behavioral Health 12/06 on a 5150 for DTS. Pt reported that she planned to slit her throat. Pt reported that people were out to get her and she'd rather be than to listen to the voices. Pt unable to safety plan. Pt has history bipolar and anxiety. Intervention: Provide medication administration & medication management; Maintained a safe & supportive environment; Clear & simple instructions; Direction & encouragement regarding performance of ADLs; monitored behaviors & maintained clear boundaries; Patient physical assessment & 1:1 patient interview; Therapeutic conversation & active listening; Patient education & monitoring. Response: Received pt. asleep in bed at start of shift. Patient is pleasant and cooperative with care; compliant with medication. Pt expressed to this VETERINARY X RAY OPERATOR during 1:1 SI/HI, -AV/H, no apparent delusions expressed this shift. Pt ate breakfast in community room. Pt. social with peers and observed in the milieu participating in groups and watching TV. Pt appears decently groomed, wearing street clothing, fair hygiene. Pt participated in patio time with peers. Pt stating she will be discharging 12/20/2022 with sister in [place], [place]. Plan: Pt is in need of crisis interruption with medication management and monitoring until stable and no longer a danger to self.
[2022-12-19 19:00] VITALS: BP 128/82
[2022-12-19] MEDS: olanzapine 10mg tablet PO SCH (20:42)
[2022-12-19] MEDS: prazosin 1mg capsule PO SCH (20:43)
--- NOTE | 2022-12-20 05:02 | NUR ---
Nursing Progress Note: Problem: Pt admitted to [facility] for Behavioral Health 12/06 on a 5150 for DTS. Pt reported that she planned to slit her throat. Pt reported that people were out to get her and she'd rather be than to listen to the voices. Pt unable to safety plan. Pt has history bipolar and anxiety. Intervention: Provide medication administration & medication management; Maintained a safe & supportive environment; Clear & simple instructions; Direction & encouragement regarding performance of ADLs; monitored behaviors & maintained clear boundaries; Patient physical assessment & 1:1 patient interview; Therapeutic conversation & active listening; Patient education & monitoring. Response: Patient was found sitting in community room socializing with patients at shift change. Patient spent first half of shift in community room watching tv and playing cards. Patient continues to make phone calls to family members about her going her daughters tomorrow. Patient is happy but also feeling very anxious. Patient took all night medications without difficulty and participated in snack before going to bed. Plan: Pt is in need of crisis interruption with medication management and monitoring until stable and no longer a danger to self.
[2022-12-20] MEDS: potassium Cl 20 mEq SR tablet PO SCH (07:26)
[2022-12-20] MEDS: furosemide 20MG tablet PO SCH (07:26)
[2022-12-20] MEDS: docusate sod 100mg capsule PO SCH (07:26)
[2022-12-20] MEDS: propranolol 40mg tablet PO SCH (07:26)
[2022-12-20] MEDS: venlafaxine XR 75mg capsule (Q24H) PO SCH (07:26)
[2022-12-20] MEDS: clonazePAM 0.5mg tablet PO SCH (07:27)
[2022-12-20] MEDS: OLANZAPINE 5 MG TABLET PO SCH (07:27)
== END 2022-12-20 08:10 | disposition home or self-care (01) | DRG 751 ==
LOC: ER 19:15 → ED HOLD 12-05 13:00 → ADULT MH 12-05 15:17
PROVIDERS: ADMIT Psychiatry & Neurology Psychiatry; ATTEND Psychiatry & Neurology Psychiatry
DX: F33.3 Major depressive disorder, recurrent, severe with psychotic symptoms (principal); R45.851 Suicidal ideations; Z20.822 Contact with and (suspected) exposure to COVID-19; F12.10 Cannabis abuse, uncomplicated; F41.0 Panic disorder [episodic paroxysmal anxiety]; F43.12 Post-traumatic stress disorder, chronic; Z60.2 Problems related to living alone; E66.3 Overweight; F43.81 Prolonged grief disorder; Z96.642 Presence of left artificial hip joint; I10 Essential (primary) hypertension; Z79.899 Other long term (current) drug therapy; Z80.7 Family history of other malignant neoplasms of lymphoid, hematopoietic and related tissues; Z82.49 Family history of ischemic heart disease and other diseases of the circulatory system; Z82.5 Family history of asthma and other chronic lower respiratory diseases; Z88.5 Allergy status to narcotic agent; Z68.42 Body mass index [BMI] 45.0-49.9, adult
CPT/HCPCS: 36415; 80053; 80061; 80305; 80320; 81001; 81025; 83036; 85025; 86704; 86705; 86706; 87081; 87340; 87811; 99285; Q0177